=== PATIENT | male | born 1965 | race Caucasian/White ===

== ENCOUNTER 2020-08-07 14:48 | Emergency (ER) | payer OTHER, SELFPAY ==
--- NOTE | ~2020-08-07 | XR_ITS ---
EXAMINATION: XR HAND, LEFT CLINICAL INFORMATION: Hand versus log splitter COMPARISON: None TECHNIQUE: PA, lateral, and oblique views of the left hand. FINDINGS: There is disruption of soft tissues of the distal fourth digit. There is a oblique comminuted fracture through the middle phalanx. There is ventral displacement of the distal fracture fragment seen on the lateral radiograph. No other fractures are seen. Mild degenerative changes present at the visualized DIP joints as well as the metacarpal phalangeal joint of the thumb. XR/XR hand LT min 3V IMPRESSION: Comminuted acute oblique fracture through middle phalanx fourth digit. No other fractures seen. Chronic degenerative changes DIP joints
[2020-08-07 14:53] VITALS: BP 177/116; PULSE 97; RESP 18; TEMP 36.6; O2SAT 97; BMI 28.5
--- NOTE | 2020-08-07 16:28 | ED_ITS ---
HPI - Extremity Problem General Chief complaint: Extremity Injury, Upper Stated complaint: HAND LACERATION Time Seen by Provider: 08/07/20 15:19 Source: patient Mode of arrival: ambulatory Limitations: no limitations History of Present Illness HPI Narrative: Patient is a 55-year-old male with no significant past medical history who presents to the ED after cutting his left 4th and 5th digit with a log splitter. Can bend fingers, bleeding. NO other complains, denies pain. Related Data Previous Rx's Medication Instructions Recorded doxycycline hyclate 100 mg tablet 100 mg PO BID #14 tab 04/26/20 amoxicillin-pot clavulanate 1 tab PO Q12H 10 Days #20 tab 08/07/20 [Augmentin] Allergies Allergy/AdvReac Type Severity Reaction Status Date / Time dog hair Allergy Unknown cant breath Uncoded 05/03/18 00:00 Review of Systems Review of Systems: Yes all other systems are reviewed and are negative [facility] Social History Social History Advance Directives: No Advance Directives Information Provided: No Physical Exam Vital Signs: Vital Signs: Last Vital Signs Temp 97.8 F 08/07/20 14:53 Pulse 97 08/07/20 14:53 Resp 18 08/07/20 14:53 BP 177/116 H 08/07/20 14:53 Pulse Ox 97 08/07/20 14:53 Body Mass Index 28.5 Const: General: cooperative, healthy appearing, comfortable and no acute distress Nutritional Appearance: average body habitus Orientation/consciousness: patient oriented x3 Eyes: General: appearance normal, both eyes and all related structures Resp: Effort & Inspection: normal respiratory effort and able to speak in com plete sentences Skin: Other: Left 4th digit, almost circumferential laceration, no bone exposure, NVI along both sides of the finger and at the finger tip, actively bleeding. Full range of motion. Left 5th digit, laceration through the fingernail Neuro: General: patient oriented x3 Course Course Course Narrative: 55-year-old male with no significant past medical history with laceration to 4th and 5th digit left hand. X-rays taken, consult with Ortho, tomorrow advised clean, then suture & volar splint, she will see pt on Sunday Reevaluation(s) Reevaluation #1: Eat searches apply to left 4th digit, 2 sutures apply to finger tip of left 5th digit, 1st dose of antibiotic given in the ED. Patient states his last tetanus was approximately 6 months ago.. Left 4th digit still bleeding a trickle, I used epinephrine and a pressure dressing. preparatory technician instructed to recheck in 10 minutes and as long as bleeding has stopped, apply a volar splint, candy and he is taking over the patient, she will need to look at the splint prior to discharge to ensure NVI and proper application. Procedures Laceration Laceration 1: Site: hand (4th digit) Side (If applicable): left Size (cm): 8.0 Description: irregular Depth: simple, single layer Local Anesthetic: lidocaine 2% Amount of anesthesia used (mL): 3 Pre-repair: wound explored, irrigated extensively and extensive debridement Skin layer closed with: nylon Size (cm): 4-0 Number of sutures: 8 Technique: simple, interrupted Laceration 2: Site: hand (5th digit) Side (If applicable): left Size (cm): 1.5 Description: linear Depth: simple, single layer Local Anesthetic: lidocaine 2% Amount of anesthesia used (mL): 3 Pre-repair: wound explored, irrigated extensively and extensive debridement Skin layer closed with: vicryl Size (cm): 4-0 Number of sutures: 2 Technique: simple, interrupted Orthopedic Splinting/Casting Injury #1: Side: left Upper Extremity Injury Location: hand Upper Extremity Immobilizer: volar splint Additional Comments: Applied by tech, patient NVI, checked by me. Discharge Plan Discharge Clinical Impression: Fracture of middle phalanx of finger of left hand, Laceration Patient Disposition: Home, Self-Care Instructions: Finger Fracture (ED), Splint Care (ED) Additional Instructions: You may take Tylenol or Motrin for pain control. Please be sure to follow up with Ninoska Leigh at Orthopedics on Sunday. Prescriptions: New amoxicillin-pot clavulanate [Augmentin] 875-125 mg tablet 1 tab PO Q12H 10 Days Qty: 20 RF: 0 No Action doxycycline hyclate 100 mg tablet 100 mg PO BID Qty: 14 RF: 0 Referrals: InstrLauren streeter MD [Physician] - 2 days (follow up with Ninoska Leigh on Sunday08/09/20 for comminuted acute oblique fracture through the middle phalanx 4th digit left hand)
[2020-08-07] MEDS: Lidocaine HCl 2 % MPF 5 ML VIAL SUBCUT (16:42)
[2020-08-07] MEDS: Amoxicillin/Potassium Clav 875 MG TABLET PO (16:42)
--- NOTE | 2020-08-07 18:30 | ED_ITS ---
HPI - Extremity Problem General Chief complaint: Extremity Injury, Upper Stated complaint: HAND LACERATION Time Seen by Provider: 08/07/20 15:19 Source: patient Mode of arrival: ambulatory Limitations: no limitations Related Data Previous Rx's Medication Instructions Recorded doxycycline hyclate 100 mg tablet 100 mg PO BID #14 tab 04/26/20 amoxicillin-pot clavulanate 1 tab PO Q12H 10 Days #20 tab 08/07/20 [Augmentin] oxycodone 5 mg PO Q4H PRN #14 tab 08/07/20 Allergies Allergy/AdvReac Type Severity Reaction Status Date / Time dog hair Allergy Unknown cant breath Uncoded 05/03/18 00:[facility] Social History Social History Advance Directives: No Advance Directives Information Provided: No Physical Exam Vital Signs: Vital Signs: Last Vital Signs Temp 97.8 F 08/07/20 14:53 Pulse 97 08/07/20 14:53 Resp 18 08/07/20 14:53 BP 177/116 H 08/07/20 14:53 Pulse Ox 97 08/07/20 14:53 Body Mass Index 28.5 Course Course Course Narrative: Sign-out from Tamanna Nassar p.a.-C please refer to her note for full H&P and laceration repairs., she does report injecting 0.3 mL of 1mg/ml of epi into the lateral aspect of the 4th finger. Dressing was removed, patient does have brisk capillary refill to the tip of the finger down to the PIP joint with some blanching to the dorsal aspect from PIP to MCP joint. Has brisk capillary refill to the entire finger ventrally. Dr Martinez in to assess, vascular checks every 15 minutes. Capillary refill was checked more often than every 15 minutes by multiple people, RN, technicians, , and this CAP BLOCKER. At 9:00 p.m., plan to place volar splint with fingers visible to check capillary refill. 9:30 p.m. patient was placed in a volar splint approximately 9:00 p.m.. Patient does have brisk and equal capillary refill to all digits. Patient will follow- up with hand surgeon. Will prescribe oxycodone 5 mg 1 tablet every 4 hours as needed for pain management. Patient does understand that if he loses capillary refill that he must present to emergency department immediately. Both and patient demonstrated ability to be a measure capillary refill. Patient verbalized understanding of and agrees plan of care discharge home. Discharge Plan Discharge Clinical Impression: Fracture of middle phalanx of finger of left hand, Laceration Patient Disposition: Home, Self-Care Instructions: Finger Fracture (ED), Splint Care (ED) Additional Instructions: You were evaluated for lacerations sustained from a log splitter. You do have significant injuries, and Comminuted acute oblique fracture through middle phalanx fourth digit. Please take prescription antibiotics. I prescribed oxycodone, take this medication every 4 hours as needed for pain management. This medication is a narcotic and has high risk for addiction and abuse. Not drive or operate machinery while taking this medication. Monitor for capillary refill as often as possible. If you notice that there was a delay in capillary refill you must present to an emergency department immediately. Follow-up with hand surgeon. I referred you to Irasema Blevins MD. Thank you for choosing this emergency department for evaluation. Please follow-up with primary care physician as needed. Return to the emergency department for any new, concerning, or worsening symptoms. Prescriptions: New amoxicillin-pot clavulanate [Augmentin] 875-125 mg tablet 1 tab PO Q12H 10 Days Qty: 20 RF: 0 oxycodone 5 mg tablet 5 mg PO Q4H PRN (Reason: pain) Qty: 14 RF: 0 No Action doxycycline hyclate 100 mg tablet 100 mg PO BID Qty: 14 RF: 0 Referrals: Lauren Domingo MD [Physician] - 2 days (follow up with Ninoska Tuttle on Sunday08/09/20 for comminuted acute oblique fracture through the middle phalanx 4th digit left hand) Irasema Blevins MD [Physician] - 2 days (Fourth digit laceration with comminuted fracture, log splitter versus finger injury.)
[2020-08-07] MEDS: ceFAZolin Sodium/Dextrose,Iso 2 GM/50 ML PIGGYBACK IV (19:53)
--- NOTE | 2020-08-07 21:52 | PC.NURSE ---
1900 RN RECEIVED PT @ CHANGE OF SHIFT W/ INSTRUCTIONS TO WATCH PT WOUND SITE D/T PREVIOUS MED ADMISSION WHEN WOUND WAS BEING CLOSED. THROUGHOUT MY CARE & INTERACTION W/ PT HE HAD VERY MINIMAL COMPLAINTS,STATING SOME PAIN TO THE FINGER BUT NOTHING ABNORMAL TO HIM, PT HAD CAPILLARY REFILL TO THE EFFECTED FINGER W/O DELAY. UPON DISCHARGE PT WAS SPOKEN TO AT LENGTH RE: WHEN TO RETURN FOR MEDICAL TX. PT TOLD TO CHECK CAPILLARY REFILL, R/T ED FOR INCREASED PAIN, NUMBNESS, INABILITY TO MOVE THE FINGER. PTS WAS AT THE STRETCHER SIDE DURING THIS CONVERSATION. PT STATED UNDERSTANDING
== END 2020-08-07 22:39 | disposition home or self-care (01) ==
PROVIDERS: Emergency Provider Internal Medicine; PCP Internal Medicine
DX: S62.625B Displaced fracture of middle phalanx of left ring finger, initial encounter for open fracture (principal); S61.217A Laceration without foreign body of left little finger without damage to nail, initial encounter; W27.0XXA Contact with workbench tool, initial encounter; Y93.89 Activity, other specified; Y92.017 Garden or yard in single-family (private) house as the place of occurrence of the external cause; Y99.9 Unspecified external cause status
CPT/HCPCS: 12004; 12042; 29125; 73130; 96365; 96372; 99283; 99284; J0690

== ENCOUNTER → 2020-08-09 08:59 | Outpatient (BNVA) | payer OTHER, SELFPAY | PROVIDERS: PCP Internal Medicine; Visit Provider Physician Assistant ==

== ENCOUNTER 2020-08-10 08:08 | Day surgery (SDC) | payer OTHER, SELFPAY ==
--- NOTE | 2020-08-09 11:53 | HO.ANESPROP2 ---
Documented by User: Maureen Arriaza 08/09/20 11:55 HPI - Anesthesia Eval Consult details Narrative: 55yo M for Left I&D of ring and small finger, Left, s ring finger Finger Fx ORIF,repair of extensor tendon,repair of small finger nail bed PMFSH Active Problems Active Problems: All Active Problems (Updated 08/09/20 @ 10:36 by Ninoska Fuentes PA-C) Fracture of phalanx of ring finger (Acute) Laceration of finger of left hand without foreign body with damage to nail (Acute) Laceration of ring finger without damage to nail (Acute) Skin infection (Acute) Past Medical History Medical History Asthma Prediabetes Surgical History Surgical History Hx of colonoscopy Hx of knee surgery Social History Social History Smoking Status: Never smoker Use of substances other than those prescribed or required for medical reasons: No Are you DNR?: No Advance Directives: Yes Advance Directives Information Provided: Yes Advance Directives on File: No Advance Directives Date on File: 08/10/20 Current occupational status: employed Current occupation: [employer] - right handed Meds Allergies Allergy/AdvReac Type Severity Reaction Status Date / Time dog hair Allergy Unknown cant breath Uncoded 08/10/20 08:31 Exam Exam Date and Time: August 09, 2020 1153 Assessment and Plan Assessment Anesthesia Assessment: Chart Reviewed Documented by User: Liberty Wiseman 08/10/20 10:23 PMFSH Past Medical History Medical History Asthma Prediabetes Surgical History Surgical History Hx of colonoscopy Hx of knee surgery Social History Social History (Reviewed 08/10/20 @ 10:22 by Liberty Robles Smoking Status: Never smoker Use of substances other than those prescribed or required for medical reasons: No Are you DNR?: No Advance Directives: Yes Advance Directives Information Provided: Yes Advance Directives on File: No Advance Directives Date on File: 08/10/20 Current occupational status: employed Current occupation: [employer] - right handed Meds Allergies Allergy/AdvReac Type Severity Reaction Status Date / Time dog hair Allergy Unknown cant breath Uncoded 08/10/20 08:31 Exam Airway Mallampati Class: II TM Dist: >3cm Neck ROM: Full Assessment and Plan Assessment Anesthesia Assessment: Anesthesia Plan Discussed and Chart Reviewed Final Anesthetic Review NPO: Yes ASA Class: II Final Preanesthetic Review: No Changes in Pt Med Stat, Meds/Allgs Chart Reviewed, Consent Obtained/Reviewed and Anes Risks/Benef Reviewed Patient Risk: Low Procedure Risk: Low Assessment/Block/Sedation in SS: Assess/Block/Sedation-SS Anesthetic Plan Anesthetic Plan: GA Disposition: Standard PACU
--- NOTE | ~2020-08-10 | FL_ITS ---
EXAMINATION: XR FLUOROSCOPY WITH IMAGES CLINICAL INFORMATION: Left ring finger ORIF COMPARISON: 08/07/2020 TECHNIQUE: Fluoroscopy performed by Dr. Irasema Blevins. Fluoroscopy time: 142.5% seconds DAP: 43651.3 uGycm2 Images: 3 FINDINGS: Imaging shows placement of 3 K wires for comminuted intra-articular fracture involving the base of the left 4th middle phalanx. FL/FL guidance in OR IMPRESSION: Or internal fixation left 4th finger middle phalanx fracture.
[2020-08-10 08:31] VITALS: BP 148/98; PULSE 65; RESP 16; TEMP 36.6; O2SAT 97; BMI 28.5
[2020-08-10] MEDS: Lactated Ringers 1,000 ML 100 ML IVCONT (08:47)
--- NOTE | 2020-08-10 09:06 | MHC.SHP ---
Pre-Procedural Eval Section B Chief Complaint: fx of left ring finger Allergies: Allergies Allergy/AdvReac Type Severity Reaction Status Date / Time dog hair Allergy Unknown cant breath Uncoded 08/10/20 08:31 Plan I have reviewed the history and physical and performed a pertinent physical examination on my patient. No changes have occurred unless specified.
--- NOTE | 2020-08-10 09:07 | P.OP_ITS ---
Operative Note Operative Note Date of Service: 08/10/20 Narrative: Operative Note Narrative: Preop diagnosis: 1. Left ring finger open middle phalanx fracture 2. Left ring finger extensor tendon laceration 3. Left small finger nail bed injury Postop diagnosis: Same Procedure: 1. Left ring finger open middle phalanx fracture I&D 2. Left ring finger middle phalanx fracture open reduction internal fixation 3. Left ring finger repair of extensor tendon 4. Left small finger nail bed repair 5. Ulnar nerve block Surgeon: Irasema Blevins MD Anesthesia: General Findings: Near amputation of the left ring finger at the middle phalanx with an open fracture of the middle phalanx, and laceration of the extensor tendon. Nail bed injury to the distal aspect of the left small finger nail bed all wounds appear to be clean Implants: 0.045 K-wires times 3 Tourniquet time: None EBL: Minimal Specimen: None Drains: None Complications: None Disposition: Brought to the recovery room in stable condition Plan: Continue oral antibiotics until finished. Follow-up in 10-14 days for a wound check, postop radiographs and for placement in a short-arm finger spica cast or splint Anticipate suture removal in about 3 weeks Anticipate K-wire removal in 4 weeks based on interval bony healing Educate the patient that full fracture healing anticipated in approximately 8-12 weeks. Indications: The patient is 55 years old with a wood splitting injury to his left ring and small fingers resulting in an open fracture of the left ring finger middle phalanx at the left small finger distal phalanx . The risks and benefits of operative treatment, including but not limited to risk of damage to blood vessels, nerves, tendons, infection, recurrence, delayed or nonunion of fracture, persistent pain or numbness, incomplete resolution of preoperative symptoms, or need for further surgery were discussed with the patient and they wished to proceed with surgery. Procedure: Once consent was obtained patient was brought back to the operating suite and placed in the operating table in a supine position. . Perioperative antibiotics and general anesthesia was administered by the anesthesia team. A tourniquet was applied to the proximal aspect of the left upper extremity and the limb was prepped and draped in a standard surgical fashion. The limb was elevated and exsanguinated with an Esmarch bandage the tourniquet inflated to 250 mm of mercury for a total tourniquet time of 82 minutes. The sutures were removed from the patient's left ring finger revealing a near amputation of the finger at the middle phalanx. The wound was opened and an I&D was performed. I used a curette on the ends of the bone to remove soft tissue and debris from the fracture site. Overall the wounds were clean. The extensor tendons were identified on the dorsal aspect of the middle phalanx. The FluoroScan was used during the case to assist with our fracture reduction and placement of all implants. At this point I performed an open reduction of the middle phalanx fracture. I passed a 0.045 K-wire retrograde through the tip of the ring finger and advanced it across the D IP joint and down the shaft of the middle phalanx to the fracture site. The FluoroScan was used to assure that I had a satisfactory reduction and the K-wire was advanced across the fracture site to the base of the middle phalanx. I then passed a 0.045 K-wire obliquely from the distal radial aspect of the middle phalanx retrograde across the oblique fracture of the middle phalanx to the base of the middle phalanx. Third 0.045 K-wire was similarly advanced from the radial cortex parallel to the previous K-wire, across the fracture site and to the base of the middle phalanx. The Fracture alignment was assessed for both angular and rotational malalignment. Once satisfied with our fracture reduction and implant placement, the K-wires were bent and cut short and pin caps applied. Final fluoroscopic images were then obtained. I then reapproximated the extensor tendon edges with some 4-0 Vicryl suture material. I then use some 4-0 nylon suture to reapproximate the skin edges over the dorsal and ulnar aspect of the middle phalanx. Attention was then turned to the left small finger. The nail plate was cut and was removed from the underlying nail bed using a [place] elevator. This then revealed the nail bed injury. This wound was also copiously irrigated with normal saline. I then repaired the nail bed with some 6 0 got suture, and repaired the distal skin laceration using some 5 0 nylon suture. The wounds were copiously irrigated with normal saline. [An ulnar nerve block was then performed by infiltrating about the ulnar nerve at the wrist with some 1% lidocaine with epinephrine for postop pain control.] A Sterile dressing and short volar splint extending to the forearm was applied. The patient appears to have tolerated the procedure well and with no complications. All digits were well vascularized at the conclusion of the case.
[2020-08-10 12:37] VITALS: BP 138/94; PULSE 78; RESP 20; TEMP 36.6; O2SAT 99
[2020-08-10 12:42] VITALS: BP 129/92; PULSE 75; RESP 16; O2SAT 99
[2020-08-10 12:47] VITALS: BP 120/93; PULSE 74; RESP 18; O2SAT 98
[2020-08-10 12:52] VITALS: BP 134/98; PULSE 80; RESP 16; O2SAT 99
[2020-08-10 13:07] VITALS: BP 146/98; PULSE 73; RESP 16; O2SAT 97
== END 2020-08-10 13:36 | disposition home or self-care (01) ==
PROVIDERS: PCP Internal Medicine; Visit Provider Orthopaedic Surgery
PROC: (CPT 26735; principal; 2020-08-10 09:40)
PROC: (CPT 26735; 2020-08-10 09:40)
DX: S62.655A Nondisplaced fracture of middle phalanx of left ring finger, initial encounter for closed fracture (principal); S66.325A Laceration of extensor muscle, fascia and tendon of left ring finger at wrist and hand level, initial encounter; S61.307A Unspecified open wound of left little finger with damage to nail, initial encounter; J45.909 Unspecified asthma, uncomplicated; R73.03 Prediabetes; W26.8XXA Contact with other sharp object(s), not elsewhere classified, initial encounter; Y93.89 Activity, other specified; Y92.9 Unspecified place or not applicable; Y99.8 Other external cause status
CPT/HCPCS: 26735; 11012; 26418; 11760; J0690; J1100; J2250; J2405; J3010

== ENCOUNTER → 2020-08-11 13:43 | Outpatient (BNVA) | payer OTHER, SELFPAY | PROVIDERS: PCP Internal Medicine; Visit Provider Orthopaedic Surgery ==

== ENCOUNTER 2020-08-17 08:44 | Outpatient (REF) | payer OTHER, SELFPAY ==
--- NOTE | ~2020-08-17 | XR_ITS ---
EXAMINATION: XR HAND, LEFT CLINICAL INFORMATION: Fracture. Pain. COMPARISON: Left hand radiographs dated 06/07/2020. TECHNIQUE: PA, lateral, and oblique views of the left hand. FINDINGS: Orthopedic pins across the previously seen 4th middle phalangeal fracture which now appears in near anatomic alignment. No significant new bone/callus formation. No hardware fracture or perihardware lucency. No osseous erosion. XR/XR hand LT min 3V IMPRESSION: Orthopedic pins across the 4th middle phalangeal fracture with improved anatomic alignment. No evidence of hardware complication.
== END 2020-08-17 08:45 | disposition home or self-care (01) ==
LOC: HO.HOSX 08:44
PROVIDERS: PCP Internal Medicine; Visit Provider Orthopaedic Surgery
DX: M79.642 Pain in left hand (principal); R21 Rash and other nonspecific skin eruption; S62.625B Displaced fracture of middle phalanx of left ring finger, initial encounter for open fracture; S69.92XA Unspecified injury of left wrist, hand and finger(s), initial encounter; S56.422A Laceration of extensor muscle, fascia and tendon of left index finger at forearm level, initial encounter
CPT/HCPCS: 73130

== ENCOUNTER 2020-08-24 16:21 | Outpatient (REF) | payer OTHER, SELFPAY | END 2020-08-24 16:22 | disposition home or self-care (01) | LOC: HO.HOSX 16:21 | PROVIDERS: Visit Provider Orthopaedic Surgery | DX: Z13.89 Encounter for screening for other disorder (principal) ==

== ENCOUNTER 2020-08-25 07:53 | Outpatient (REF) | payer OTHER, SELFPAY ==
--- NOTE | ~2020-08-25 | XR_ITS ---
EXAMINATION: XR HAND, LEFT CLINICAL INFORMATION: Follow-up fracture COMPARISON: Left hand 08/17/2020 TECHNIQUE: PA, lateral, and oblique views of the left hand. FINDINGS: There are 3 pins traversing the comminuted proximal and mid phalanx fourth digit in alignment. No callus formation is seen. There is persistent soft tissue swelling. Mild degenerative arthritic changes as seen in the PIP and DIP joints of second through fifth digits. XR/XR hand LT min 3V IMPRESSION: 3 pins stabilizing mid phalangeal comminuted fracture fourth digit. There is no callus formation seen yet with mild soft tissue swelling. No major change from 08/17/2020.
== END 2020-08-25 07:54 | disposition home or self-care (01) ==
LOC: HO.HOSX 07:53
PROVIDERS: Visit Provider Orthopaedic Surgery
DX: S56.42 Laceration of extensor muscle, fascia and tendon of other and unspecified finger at forearm level (principal); S69.92XD Unspecified injury of left wrist, hand and finger(s), subsequent encounter; S62.625D Displaced fracture of middle phalanx of left ring finger, subsequent encounter for fracture with routine healing
CPT/HCPCS: 73130

== ENCOUNTER 2020-09-01 09:34 | Outpatient (REF) | payer OTHER, SELFPAY ==
--- NOTE | ~2020-09-01 | XR_ITS ---
EXAMINATION: XR HAND, LEFT CLINICAL INFORMATION: Pain in left hand. COMPARISON: 08/25/2020 TECHNIQUE: PA, lateral, and oblique views of the left hand. FINDINGS: Again seen are pins 4th digit with 1 pin extending through the distal phalanx and middle phalanx and 2 pins extending obliquely through the middle phalanx. Comminuted fracture is still seen. There is some evidence of some interval healing, however. Degenerative changes are again seen at the DIP joints along with the metacarpal phalangeal joints of the 1st and 2nd digits. Milder changes are present at the PIP joints. No new fractures seen. XR/XR hand LT min 3V IMPRESSION: Stable appearance of pins in the 4th digit with some evidence of fracture healing. Degenerative changes as described above.
== END 2020-09-01 09:35 | disposition home or self-care (01) ==
LOC: HO.HOSX 09:34
PROVIDERS: Visit Provider Orthopaedic Surgery
DX: M79.642 Pain in left hand (principal)
CPT/HCPCS: 73130

== ENCOUNTER 2020-09-17 08:12 | Outpatient (REF) | payer OTHER, SELFPAY ==
--- NOTE | ~2020-09-17 | XR_ITS ---
EXAMINATION: XR HAND, LEFT CLINICAL INFORMATION: Pain in left hand. COMPARISON: Prior left hand radiographs from through 09/01/2020. TECHNIQUE: PA, lateral, and oblique views of the left hand. FINDINGS: Again seen are fixation pins spanning the mid and distal phalanx of the 4th digit of the left hand. The pins traverse a comminuted fracture of the middle phalanx. In comparison to 09/01/2020, there appears to be evidence of some bony remodeling and interval healing. Degenerative changes involving the PIP and DIP joints are unchanged. XR/XR hand LT min 3V IMPRESSION: Overall stable appearance of pins spanning the middle and distal phalanx of the 4th digit with evidence of ongoing fracture healing.
== END 2020-09-17 08:13 | disposition home or self-care (01) ==
LOC: HO.XRAY 08:12
PROVIDERS: PCP Internal Medicine; Visit Provider Orthopaedic Surgery
DX: S62.625D Displaced fracture of middle phalanx of left ring finger, subsequent encounter for fracture with routine healing (principal); S69.92XD Unspecified injury of left wrist, hand and finger(s), subsequent encounter; X58.XXXD Exposure to other specified factors, subsequent encounter
CPT/HCPCS: 73130

== ENCOUNTER 2020-11-03 08:25 | Outpatient (REF) | payer OTHER, SELFPAY ==
--- NOTE | ~2020-11-03 | XR_ITS ---
EXAMINATION: XR HAND, LEFT CLINICAL INFORMATION: Left hand pain COMPARISON: 09/17/2020 TECHNIQUE: PA, lateral, and oblique views of the left hand. FINDINGS: The wires have been removed from the 4th finger with continued healing and osseous bridging of the 4th middle phalanx fracture. The displaced volar fragment appears to be partially incorporated into the base of the middle phalanx. No acute abnormality. XR/XR hand LT min 3V IMPRESSION: Continued healing of the 4th middle phalanx fracture following hardware removal. Radiographically, the fracture appears completely healed with a partially incorporated volar fragment.
== END 2020-11-03 08:26 | disposition home or self-care (01) ==
LOC: HO.HOSX 08:25
PROVIDERS: Visit Provider Orthopaedic Surgery
DX: S62.625D Displaced fracture of middle phalanx of left ring finger, subsequent encounter for fracture with routine healing (principal); S66.325D Laceration of extensor muscle, fascia and tendon of left ring finger at wrist and hand level, subsequent encounter; M25.642 Stiffness of left hand, not elsewhere classified
CPT/HCPCS: 73130

== ENCOUNTER 2022-10-17 13:23 | Outpatient (AMB) | payer OTHER, SELFPAY ==
--- NOTE | 2022-10-17 13:25 | MHC.OFFWIV ---
Intake Vital Signs 10/17/22 13:28 BP 120/78 Blood Pressure Location Lt brachial Position Sitting Pulse 104 H Pulse Source Pulse Oximeter Pulse Oximetry (%) 98 Oxygen Delivery Method Room Air Intake Visit Reasons: EP RT knee pain (lobby) Intake Note: Patient here for right knee pain, states its been present for at least 6 months, lately it has been very bothersome. Patient Tobacco Use Status: Never used Tobacco Allergies dog hair Allergy (Unknown, Uncoded 10/18/22 06:08) cant breath Medication List - Last Reconciled 10/18/22 by Hood Haque MD meloxicam 15 mg PO DAILY Do you need a note to return to daycare/school/sports/work: No HPI EP RT knee pain (lobby) HPI Details 57-year-old male presents to the office for a sick visit. Patient works on his knees, he puts floors down, tiles for a living. Patient is having persistent pain in the right knee for the past 6 months. Symptoms are worse when he kneels down. He has tried [id number] anti-inflammatories with minimal relief. Able to walk and climb stairs with minimal discomfort. PFSH Medical History Asthma Prediabetes Surgical History Hx of colonoscopy Hx of knee surgery Social History Patient Tobacco Use Status: Never used Tobacco Advance Directives Date on File: 08/10/20 Current occupational status: employed Current occupation: [employer] - right handed Physical Exam Vital Signs: Last Vital Signs Pulse 104 H 10/17/22 13:28 BP 120/78 10/17/22 13:28 Pulse Ox 98 10/17/22 13:28 Oxygen Delivery Method Room Air 10/17/22 13:28 Extrem Other: Right knee: Swollen infrapatellar bursa, tender to touch. Full range of motion at the knee. No joint line tenderness. Assessment & Plan Assessment & Plan (1) Patellar bursitis of right knee: Code(s): M70.51 - Other bursitis of knee, right knee Plan: Anti-inflammatories called in. Patient would need an orthopedic appointment for possible steroid injection. Advised to use splint. Orders: Referrals Orthopedics Referral M70.51 - Other bursitis of knee, right knee Medications: New meloxicam 15 mg PO DAILY 14 tabs 0RF Coding Level of Care Code Est Pt Level 3 (74651) Diagnoses Patellar bursitis of right knee M70.51
[2022-10-17 13:28] VITALS: BP 120/78; PULSE 104; O2SAT 98
== END 2022-10-17 14:21 | disposition home or self-care (01) ==
PROVIDERS: PCP Internal Medicine; Visit Provider Internal Medicine
DX: M70.51 Other bursitis of knee, right knee (principal)
CPT/HCPCS: 99213

== ENCOUNTER 2022-11-24 10:19 | Outpatient (AMB) | payer OTHER, SELFPAY ==
--- NOTE | 2022-11-24 10:27 | MHC.OFFVIS ---
Intake Vital Signs 11/24/22 10:31 Height 5 ft 10.5 in Weight 195 lb BMI 27.6 Intake Visit Reasons: Newprob-bursitis of knee, right knee Intake Note: Isaac a 57 year old male who presents today as a new patient for an evaluation of right knee pain. Patient reports pain has been present for about a year, denies injury. He states he does cynthia that requires him to be on his knees. He denies knee giving out but feels like his knee will. His pain is intermittent and located at the anterior aspect of knee. Denies numbness or tingling. No previous tx. Allergies dog hair Allergy (Unknown, Uncoded 11/24/22 10:36) cant breath HPI Newprob-bursitis of knee, right knee HPI Details 57-year-old male who presents to the office today for evaluation of right knee pain for about an year. He states he has intermittent pain in the anterior aspect of his knee. He also c/o experiencing like his knee will give out while standing. He denies any numbness, tingling or injury and has not had any treatment in the past. 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 [facility] Medical History Asthma Prediabetes Surgical History Hx of colonoscopy Hx of knee surgery Social History Patient Tobacco Use Status: Never used Tobacco Advance Directives Date on File: 08/10/20 Current occupational status: employed Current occupation: [employer] - right handed Review of Systems Const All systems reviewed & are unremarkable except as noted in HPI and below Physical Exam Vital Signs: BMI result Body Mass Index 27.6 Extrem Other: Right knee: Normal to inspection. He does have a trace infra-patellar bursitis. No redness, warmth or tenderness to palpation. He has full ROM without pain. NVI. Assessment & Plan Assessment & Plan (1) Bursitis of right knee: Code(s): M70.51 - Other bursitis of knee, right knee Plan We discussed conservative management, which includes compression, NSAIDs and activity modifications. If symptoms worsen, the area becomes red, hot and painful, they should return to see me. Otherwise, PRN. Orders: Orders XR knee RT 2V Today M25.569 - Pain in unspecified knee XR knee standing BI Today M25.561 - Pain in right knee, M25.562 - Pain in left knee Patient Instructions: Scribed for Ninoska Funetes PA-C, by Isac Cyr medical insurance verifier, on 11/24/2022 at 10:30 AM [facility]. Ninoska Quispe PA-C, have personally reviewed and agree with the information entered by the scribe. Coding Level of Care Code Est Pt Level 3 (40549) Diagnoses Bursitis of right knee M70.51
[2022-11-24 10:31] VITALS: BMI 27.6
== END 2022-11-24 10:59 | disposition home or self-care (01) ==
PROVIDERS: PCP Internal Medicine; Visit Provider Physician Assistant
DX: M70.51 Other bursitis of knee, right knee (principal)
CPT/HCPCS: 99213

== ENCOUNTER 2022-11-24 13:40 | Outpatient (REF) | payer OTHER, SELFPAY ==
--- NOTE | ~2022-11-24 | XR_ITS ---
EXAMINATION: XR KNEE, RIGHT CLINICAL INFORMATION: Pain. TECHNIQUE: AP bilateral knee standing 1 view. Right knee 2 views. COMPARISON: None available. FINDINGS: AP BILATERAL KNEE STANDING: There is mild reduction in the medial compartment joint spaces of both knees. The lateral compartment joint space is somewhat maintained. No bony erosive changes or soft tissue swelling seen. No loose bodies noted. RIGHT KNEE: The patellofemoral compartments soft tissues are normal. There is a small subchondral defect along medial femoral condyle on sunrise view. There is a small loose body or bone fragment seen posterior to the fibula. There is mild suprapatellar joint effusion suspected. XR/XR knee RT 2V IMPRESSION: 1. Mild degenerative changes medial compartment, both knees. 2. Mild right knee suprapatellar joint effusion with a small subchondral defect along the medial femoral condyle. There is a small loose body or bone fragment posterior to the fibula. 3. Recommend MRI right knee. 4. Mild suprapatellar joint effusion.
--- NOTE | ~2022-11-24 | XR_ITS ---
EXAMINATION: XR KNEE, RIGHT CLINICAL INFORMATION: Pain. TECHNIQUE: AP bilateral knee standing 1 view. Right knee 2 views. COMPARISON: None available. FINDINGS: AP BILATERAL KNEE STANDING: There is mild reduction in the medial compartment joint spaces of both knees. The lateral compartment joint space is somewhat maintained. No bony erosive changes or soft tissue swelling seen. No loose bodies noted. RIGHT KNEE: The patellofemoral compartments soft tissues are normal. There is a small subchondral defect along medial femoral condyle on sunrise view. There is a small loose body or bone fragment seen posterior to the fibula. There is mild suprapatellar joint effusion suspected. XR/XR knee standing BI IMPRESSION: 1. Mild degenerative changes medial compartment, both knees. 2. Mild right knee suprapatellar joint effusion with a small subchondral defect along the medial femoral condyle. There is a small loose body or bone fragment posterior to the fibula. 3. Recommend MRI right knee. 4. Mild suprapatellar joint effusion.
== END 2022-11-24 13:41 | disposition home or self-care (01) ==
LOC: HO.HOSX 13:40
PROVIDERS: Visit Provider Physician Assistant
DX: M70.51 Other bursitis of knee, right knee (principal); M25.562 Pain in left knee
CPT/HCPCS: 73560; 73565

== ENCOUNTER 2022-12-20 10:35 | Outpatient (AMB) | payer OTHER, SELFPAY ==
--- NOTE | 2022-12-20 11:00 | AM.OFFWIN_ITS ---
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 He states that a in the evening the exposure caught up with him and he had an episode where he could not breathe and it took about an hour or so to subside. He did not have any medications with him at that time. He reports that he is feeling well now and asymptomatic. [facility] Medical History Asthma Prediabetes Surgical History Hx of colonoscopy Hx of knee surgery Social History Patient Tobacco Use Status: Never used Tobacco Advance Directives Date on File: 08/10/20 Current occupational status: employed Current occupation: [employer] - right handed Physical Exam Vital Signs: Last Vital Signs Pulse 82 12/20/22 11:02 BP 130/80 12/20/22 11:02 Pulse Ox 98 12/20/22 11:02 Oxygen Delivery Method Room Air 12/20/22 11:02 Const General: healthy appearing and no acute distress Orientation/consciousness: patient oriented x3 Eyes Corneas: corneas normal Pupils: Equal, round and reactive pupils present Chest Chest palpation & inspection: no tenderness Resp Effort & Inspection: normal respiratory effort and able to speak in complete sentences Auscultation: clear to auscultation bilaterally GI Palpation (GI): nontender Neuro General: patient oriented x3 Cranial nerves: Yes Equal, round and reactive pupils present Psych Appearance: grossly normal Attitude: cooperative Assessment & Plan Assessment & Plan (1) Allergies: Code(s): T78.40XA - Allergy, unspecified, initial encounter Plan: The patient presents to urgent care for evaluation after allergic attack 2 days ago. His symptoms resolved slowly on their own but given his allergies and history of asthma precipitated by a contact with dog hair, I feel he would benefit from an albuterol inhaler to keep around at home or on the job site. Patient is agreeable to this plan. He does not need steroids he is asymptomatic at this time. We also discussed preventative measures such as wearing an N95 mask when contacting allergens Medications: New albuterol sulfate 90 mcg/actuation 2 inhalations inhalation QID PRN 6.7 grams 1RF shortness of breath or wheezing Coding Level of Care Code Est Pt Level 3 (99154) Diagnoses Allergies T78.40XA
[2022-12-20 11:02] VITALS: BP 130/80; PULSE 82; O2SAT 98
== END 2022-12-20 12:01 | disposition home or self-care (01) ==
PROVIDERS: PCP Internal Medicine; Visit Provider Emergency Medicine
DX: T78.40XA Allergy, unspecified, initial encounter (principal)
CPT/HCPCS: 99213

== ENCOUNTER → 2023-01-04 08:08 | Outpatient (AMB) | payer OTHER, SELFPAY ==
[2023-01-04 08:19] VITALS: BP 152/90; PULSE 87; TEMP 36.2; O2SAT 98; BMI 29.0
--- NOTE | 2023-01-04 08:19 | AM.OFFWIN_ITS ---
Intake Vital Signs 01/04/23 08:19 Height 5 ft 10.5 in Weight 205 lb BMI 29.0 BP 152/90 H Blood Pressure Location Lt brachial Position Sitting Pulse 87 Pulse Source Pulse Oximeter Temp 97.2 F Temp Source Temporal Artery Scan Pulse Oximetry (%) 98 Oxygen Delivery Method Room Air Intake Visit Reasons: EP Swollen scrotum/LT eye Intake Note: pt is here for c/o swollen scrotum per pt states double to size, and left eye redness and watery Patient Tobacco Use Status: Never used Tobacco Allergies Peanut Butter Allergy (Verified 01/04/23 09:54) Anaphylaxis dog hair Allergy (Unknown, Uncoded 01/04/23 08:20) cant breath Do you need a note to return to daycare/school/sports/work: Yes HPI HPI Comments History of Present Illness Details 57-year-old male that presents for testi cular swelling in left eye pain/irritation. Present for last 2-3 days. Dorsal is severe. This. Denies urinary symptoms fever discharge, rash, is monogamous with 1 partner. PFSH Medical History Prediabetes Asthma Surgical History Hx of knee surgery Hx of colonoscopy Social History Alcohol intake: current Alcohol type: beer Patient Tobacco Use Status: Never used Tobacco Smoked in Last 30 Days: No Use of substances other than those prescribed or required for medical reasons: No Advance Directives: Yes Advance Directives on File: Yes Advance Directives Date on File: 08/10/20 Current occupational status: employed Current occupation: [employer] - right handed Review of Systems Reports genital pain and Reports scrotal swelling Physical Exam Vital Signs: Last Vital Signs Temp 97.2 F 01/04/23 08:19 Pulse 87 01/04/23 08:19 BP 152/90 H 01/04/23 08:19 Pulse Ox 98 01/04/23 08:19 Oxygen Delivery Method Room Air 01/04/23 08:19 BMI result Body Mass Index 29.0 Const General: healthy appearing, comfortable, no acute distress and alert Orientation/consciousness: patient oriented x3 Limitations: no limitations HEENT Head: Yes normal to inspection Ears: hearing grossly normal bilaterally Resp Effort & Inspection: normal respiratory effort and able to speak in complete sentences Cardio Rate: regular rate Other: Severely edematous scrotum and penis. No rashes or lesion. Brawny appearance w/ sweating. Skin General skin exam: no rashes or lesions noted Neuro General: patient oriented x3 Extrem General: Yes normal to inspection Results AMB Urinalysis, Automated UA Leukoctes 0 Dot/uL Last Edit by Unruly Foley CMA on 01/04/23 09:04 UA Nitrite Negative Last Edit by Unruly Foley CMA on 01/04/23 09:04 UA Urobilinogen 0.2 mg/dL Last Edit by Unruly Foley CMA on 01/04/23 09 :04 UA Protein 0 mg/dL Last Edit by Unruly Foley CMA on 01/04/23 09:04 UA pH 6.0 Last Edit by Unruly Foley CMA on 01/04/23 09:04 UA Blood 0 Cale/uL Last Edit by Unruly Foley CMA on 01/04/23 09:04 UA Specific [place] 1.030 Last Edit by Unruly Foley CMA on 01/04/23 09:04 UA Ketone Positive Last Edit by Unruly Foley CMA on 01/04/23 09:04 UA Bilirubin 0 mg/dL Last Edit by Unruly Foley CMA on 01/04/23 09:04 UA Glucose 1000 mg/dL Last Edit by Unruly Foley CMA on 01/04/23 09:04 AMB Random Glucose (hemocue) AMB Random Glucose (hemocue) 271 mg/dL Last Edit by Unruly Foley CMA o n 01/04/23 09:06 Results Reviewed Results Reviewed: Laboratory Last Values Random Glu (Clinic) 271 mg/dL 01/04/23 09:04 Urine pH (Auto) 6.0 01/04/23 09:04 Specific [place] (Auto) 1.030 01/04/23 09:04 Urine Protein (Auto) 0 mg/dL 01/04/23 09:04 Glucose (UA)(Auto) 1000 mg/dL 01/04/23 09:04 Urine Ketones (Auto) Positive 01/04/23 09:04 Urine Blood (Auto) 0 Cale/uL 01/04/23 09:04 Urine Nitrite (Auto) Negative 01/04/23 09:04 Urine Bilirubin (Auto) 0 mg/dL 01/04/23 09:04 Urine Urobilinogen (Auto) 0.2 mg/dL 01/04/23 09:04 Leukocyte Esterase (Auto) 0 Dot/uL 01/04/23 09:04 Assessment & Plan Assessment & Plan (1) Scrotum swelling: Code(s): N50.89 - Other specified disorders of the male genital organs Plan VSS. On exam patient presents alert and oriented no acute distress. Exam was for Severely edematous scrotum and penis. No rashes or lesion. Brawny appearance w/ sweating. Urinalysis was performed showed elevated glucose bedside blood sugars 271 testing. Discussed signs of worsening concerning infection the patient recommend proceeding to the emergency department for further workup and evaluation. Discharge instructions, follow up and treatment are discussed with patient in my usual fashion. Alternatives in treatment are also discussed. The patient will return for worsening symptoms or as needed. Advised that any labs/imaging ordered will be followed up on and contact made if further treatment needed. Counseled that patient's condition may require further evaluation and/or treatment. Symptoms of concern for worsening disorder discussed in detail in my customary manner. Patient does verbalize understanding of the plan, there are no apparent barriers to communication. The patient is given the opportunity to ask questions and have them answered to his/her satisfaction Orders: Orders AMB Urinalysis Automated Today Z13.9 - Encounter for screening, unspecified AMB Random Glucose (hemocue) Today Z13.9 - Encounter for screening, unspecified Coding Level of Care Code Est Pt Level 3 (60397) Diagnoses Scrotum swelling N50.89
== END ==
PROVIDERS: PCP Internal Medicine; Visit Provider Physician Assistant
DX: N50.89 Other specified disorders of the male genital organs (principal)
CPT/HCPCS: 81003; 82948; 99213

== ENCOUNTER 2023-01-04 09:28 | Observation (INO) | payer OTHER, SELFPAY ==
--- NOTE | ~2023-01-04 | US_ITS ---
EXAMINATION: US SCROTUM CLINICAL INFORMATION: Swelling, erythema. COMPARISON: None available. TECHNIQUE: A sonogram of the scrotum was performed assessing pizano-scale appearance and color Doppler flow. Spectral Doppler analysis of the arterial and venous flow were performed in the testes bilaterally. FINDINGS: RIGHT: Right testicle measures 5.3 x 2.8 x 4.0 cm, volume 31.4 mL. No focal testicular parenchymal lesions are visualized. Spectral Doppler analysis of the arterial and venous flow is normal in the right testis. Right epididymal head is normal in size. No right hydrocele or varicocele is seen. Right epididymal Doppler flow is normal. LEFT: Left testicle measures 5.0 x 3.1 x 3.8 cm, volume 31 mL. No focal testicular parenchymal lesions are visualized. Spectral Doppler analysis of the arterial and venous flow is normal in the left testis. Left epididymal head is normal in size. No left hydrocele or varicocele is seen. Left epididymal Doppler flow is normal. Incidental finding of left epididymis appendix. There is bilateral scrotal wall thickening US/US scrotum IMPRESSION: 1. Bilateral scrotal wall thickening. 2. The testes and epididymis are unremarkable.
--- NOTE | ~2023-01-04 | US_ITS ---
EXAMINATION: US ABDOMEN COMPLETE CLINICAL INFORMATION: Elevated LFTs. COMPARISON: None available. TECHNIQUE: Real-time imaging of the abdominal viscera. FINDINGS: Very limited examination secondary to patient body habitus and shadowing from overlying bowel gas. PANCREAS: Not well seen. ABDOMINAL AORTA: Not well seen. INFERIOR VENA CAVA: Not well seen. LIVER: Enlarged with increased parenchymal echogenicity, sparing regions adjacent to the gallbladder fossa. No significant intrahepatic biliary ductal dilatation. No discrete focal mass, although evaluation is limited due to body habitus and shadowing from bowel gas. GALLBLADDER: Negative Allen's sign. No gallbladder wall thickening or pericholecystic free fluid. There is a 0.4 cm polyp versus adherent stone. COMMON BILE DUCT: Partially visualized measuring up to 0.5 cm in diameter. RIGHT KIDNEY: Limited evaluation. No hydronephrosis. No renal calculi or focal parenchymal lesions. The kidney measures 13.4 cm in maximum dimension. LEFT KIDNEY: Limited evaluation. No hydronephrosis. No renal calculi or focal parenchymal lesions. The kidney measures 11.5 cm in maximum dimension. SPLEEN: Splenomegaly measuring 13 cm. Indeterminate 0.8 x 0.8 x 0.7 cm hyperechoic splenic lesion. FREE FLUID: None. US/US abdomen complete IMPRESSION: Very limited examination secondary to patient body habitus and shadowing from overlying bowel gas. 1. Hepatomegaly with increased parenchymal echogenicity suggesting hepatic steatosis and/or hepatocellular disease. 2. Splenomegaly. 3. Indeterminate 0.8 cm hyperechoic splenic lesion; recommend short-term follow-up ultrasound or further characterization with outpatient MRI abdomen with and without IV contrast 4. A 0.4 cm gallbladder polyp versus adherent stone. If the patient has risk factors for gallbladder malignancy, a yearly follow-up ultrasound is recommended. If growth, surgical consult is recommended.
--- NOTE | ~2023-01-04 | CT_ITS ---
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 COMPARISON: None available. TECHNIQUE: Helical scanning was performed with submillimeter collimation through the pelvis with the use of oral contrast and during bolus intravenous injection of 85 mL of Omnipaque 350 intravenous contrast. Sagittal and coronal multiplanar 2-D reconstructions were obtained. This CT examination was performed using dose optimization techniques as appropriate, variously including the following: *Automated exposure control *Adjustment of mA and/or kV according to patient size (this includes techniques or standardized protocols for targeted exams where dose is matched to indication/reason for exam; i.e. extremities or head) *Use of iterative reconstruction technique DLP: 296 mGy-cm FINDINGS: PELVIS: Bilateral extensive scrotal wall edema and skin thickening. The testes are difficult to visualize/evaluate. Motion artifact technically degrades image quality. Small peritesticular fluid likely on a reactive basis. No gas within the soft tissues. Nonspecific subcentimeter mesenteric lymph nodes. Imaged loops of small and large bowel are not obstructed. No bulky pelvic lymphadenopathy. The prostate gland and seminal vesicles are within normal limits. The urinary bladder is unremarkable. No free fluid in the pelvis. OSSEOUS STRUCTURES: No destructive bone lesions. CT/CT pelvis w IV con IMPRESSION: Extensive scrotal wall edema and skin thickening. The testes are difficult to visualize/evaluate. Motion artifact technically degrades image quality. No gas within the soft tissues.
[2023-01-04 09:51] VITALS: BP 170/113; PULSE 77; RESP 18; TEMP 36.7; O2SAT 99; BMI 29.4
--- NOTE | 2023-01-04 09:56 | ED_ITS ---
HPI - General Adult General Chief complaint: General Medical Stated complaint: Swollen L eye, Swollen testicles Time Seen by Provider: 01/04/23 09:48 Source: patient Mode of arrival: ambulatory Limitations: no limitations History of Present Illness HPI narrative: Patient is a 57-year-old male presenting to the emergency department with complaint of scrotal and penile swelling, erythema, and itching/burning sensation since Sunday night. Also reports left eye redness and discomfort since Sunday night, states eye has been crusted over this morning and yesterday morning. Denies any pain with eye movement. States that he was recently in [place] at the [place] and returned on Sunday. He denies any dysuria, frequency, hematuria or other urinary symptoms. Denies any fevers. Denies any penile discharge. Denies any testicular pain. Reports that he has 1 sexual partner and denies concern for STIs. Patient states that he has previously been told he ?may? be diabetic but has not seen a PCP in his adult life time. States that he typically goes to the walk-in clinic for all complaints. MD complaint: scrotal and penile swelling Onset (ago): day(s) Location: eyes and genitals Severity: mild Quality: burning Pain Consistency: constant Relieving factors: rest Exacerbating factors: movement Associated symptoms: denies other symptoms Treatments prior to arrival: none Related Data Previous Rx's Medication Instructions Recorded albuterol sulfate 90 mcg/actuation 2 inh inhalation QID PRN shortness 12/20/22 aerosol inhaler of breath or wheezing #6.7 grams Allergies Allergy/AdvReac Type Severity Reaction Status Date / Time Peanut Butter Allergy Anaphylaxis Verified 01/04/23 09:54 dog hair Allergy Unknown cant breath Uncoded 01/04/23 08:20 Review of Systems 2 Review of Systems: As per HPI Yes all other systems are reviewed and are negative Constitutional: Constitutional: Reports as per HPI PMFSH Past Medical History Medical History Asthma Prediabetes Surgical History Hx of colonoscopy Hx of knee surgery Social History Social History Alcohol intake: current Alcohol type: beer Patient Tobacco Use Status: Never used Tobacco Smoked in Last 30 Days: No Use of substances other than those prescribed or required for medical reasons: No Advance Directives: Yes Advance Directives on File: Yes Advance Directives Date on File: 08/10/20 Current occupational status: employed Current occupation: [employer] - right handed Physical Exam ED Vital Signs: Vital Signs - 24 hr 01/04/23 09:51 01/04/23 10:35 Temperature 98.0 F Pulse Rate 77 72 Respiratory Rate 18 18 Blood Pressure 170/113 H 153/101 H Pulse Oximetry 99 98 Oxygen Delivery Method Room Air Room Air BMI result Body Mass Index 29.4 Vital signs have been reviewed and appear to be correct. Blood pressure elevated. Heart rate normal. Respiratory rate normal. Temperature normal. Oxygen saturation normal. Const General: cooperative, healthy appearing and no acute distress Orientation/consciousness: oriented to person, oriented to place, oriented to time and patient oriented x3 Limitations: no limitations HENMT Head: Yes normocephalic and Yes atraumatic Ears: external ears normal General nose exam: Normal external nose present Face and sinus: Yes face symmetric Mouth: oropharynx normal and moist mucous membranes Throat: Yes uvula midline Eyes Conjunctivae: conjunctival abnormal left conjunctival injection diffuse; without discharge Pupils: Equal, round and reactive pupils present EOM: EOMs intact bilaterally Neck Neck: Yes normal visual inspection and Yes supple Resp Effort & Inspection: normal respiratory effort and able to speak in complete sentences Auscultation: clear to auscultation bilaterally Cardio Rate: regular rate Rhythm: regular rhythm Heart sounds: S1 normal heart sound present and S2 normal heart sound present GI Palpation (GI): Soft to palpation and nontender Auscultation: normoactive bowel sounds Other: Exam chaperoned by MEEK Long. Erythema extending from scrotum to medial upper thighs General: Yes no CVA tenderness Penis: edematous, erythematous and Localized penile swelling present Meatus: no meatla discharge and Erythema at meatus Scrotum: edematous diffuse, erythematous diffuse, testes descended bilaterally, scrotal swelling diffuse and no ulcerations Testes: Testes normal, no epidiymal tenderness and no testicular tenderness Back/Spine/Pelvis Back: no CVA tenderness Skin General skin exam: elasticity normal and turgor normal Neuro General: oriented to person, oriented to place, oriented to time, patient oriented x3, moves all extremities, no focal motor deficits and CN's II-XI intact bilaterally Cranial nerves: Yes Equal, round and reactive pupils present Cognition (Neuro): normal cognition Extrem General: Yes full ROM, Yes no pedal edema and Yes no calf tenderness Psych Mental Status: mental status grossly normal Affect: normal affect Thought process: Normal thought process present Medications Administered Discontinued Medications Generic Name Dose Route Start Last Admin Trade Name Tino PRN Reason Stop Dose Admin Fluorescein Sodium 1 strip 01/04/23 10:32 01/04/23 11:19 Fluorescein Sodium Strip EYE-LEFT 01/04/23 10:33 1 strip ONCE ONE Administration Piperacillin Sod/Tazobactam 50 mls @ 100 mls/hr 01/04/23 13:19 01/04/23 14:53 Sod 3.375 gm/ Sodium Chloride IV 01/04/23 13:48 Infused ONCE ONE Infusion Metronidazole 500 mg in 100 mls @ 100 mls/hr 01/04/23 13:19 01/04/23 14:47 Flagyl IV 01/04/23 14:18 100 mls/hr ONCE ONE Administration Iohexol 100 ml 01/04/23 12:05 01/04/23 12:06 Iohexol 350 Mg/Ml 100 Ml Infus..Btl IV 01/04/23 12:06 85 ml ONCE ONE Administration Medical Decision Making Medical Decision Making [facility] Narrative: 10:45 Patient is a 57-year-old male presenting to the emergency department with complaint of scrotal and penile swelling, erythema, and itching/burning sensation since Sunday night. Also reports left eye redness and discomfort since Sunday night, states eye has been crusted over this morning and yesterday morning. On exam patient is awake, A+Ox3, BP elevated, VS otherwise WNL, afebrile, normal neurological exam without focal deficits, physical exam findings as above. Given reported symptoms and physical exam findings, initial differential includes Mike's gangrene, STI, undiagnosed diabetes, conjunctivitis, corneal abrasion. Low suspicion for testicular torsion. Do not suspect sepsis at this time. Labs notable for absence of leukocytosis, glucose 247, A1c 9.4. CT notable for extensive scrotal wall edema and skin thickening, testes difficult to visualize/evaluate, motion artifact degrades image quality, no gas within the soft tissues. My interpretation is in agreement with the radiologist's interpretation. [place] text to Dr. Anguiano who recommends ordering IV Zosyn and Flagyl, and scrotal ultrasound. 15:15 Ultrasound shows bilateral scrotal wall thickening, testes and epididymis unremarkable. Results [place] Texted to Dr. Anguiano who recommends admission for newly diagnosed diabetes. [place] text to NETTIE Fiore hospitalist. Dr. Mccauley also recommends continuing IV antibiotcs for scrotal cellulitis. Differential Diagnosis Differential Diagnoses: The differential diagnosis associated with the presentation includes As per [facility] Admission/Observation Consideration of admission/observation: Escalation of care including admission/observation considered Consult Healthcare Provider Management of the patient was discussed with: Hospitalist (NETTIE Fiore) and Cloth Worker (Dr. Anguiano) Lab Data [facility] Lab Attestation statement: I reviewed the patient's lab results. As per [facility] 01/04/23 10:57 01/04/23 10:57 Labs: Lab Results 01/04/23 01/04/23 Range/Units 10:57 11:37 WBC 9.0 (4.8-10.8) X10*3/uL RBC 5.26 (4.60-5.80) X10*6/uL Hgb 16.0 (14.0-18.0) g/dl Hct 44.3 (42.0-52.0) % MCV 84.2 (80.0-98.0) fL MCH 30.4 (27.0-33.0) pg MCHC 36.1 H (31.0-36.0) g/dl RDW 12.7 (11.0-16.0) % Plt Count 175 (160-400) X10*3/uL MPV 10.4 (9.4-12.4) fL Immature Gran % (Auto) 0.4 (0.0-0.4) % Neut % (Auto) 63.9 (45-73) % Lymph % (Auto) 23.1 (20-40) % [place] % (Auto) 8.6 (2-11) % Eos % (Auto) 3.7 (0-4) % Baso % (Auto) 0.3 (0-2) % Lymph # (Auto) 2.1 (1.2-4.9) X10*3/uL [place] # (Auto) 0.8 (0.1-1.2) X10*3/uL Eos # (Auto) 0.3 (0.0-0.4) X10*3/uL Baso # (Auto) 0.0 (0.0-0.2) X10*3/uL Abs Immat Gran (auto) 0.04 H (0.00-0.03) X10*3/uL Absolute Neuts (auto) 5.7 (2.0-8.3) x10*3/uL Absolute Nucleated RBC 0.000 (0.0-0.012) X10*3/uL Nucleated RBC % (auto) 0.0 (0.0-0.2) /100WBC Sodium 136 (135-145) mmol/L Potassium 4.4 (3.3-5.1) mmol/L Chloride 100 (96-108) mmol/L Carbon Dioxide 24 (22-29) mmol/L Anion Gap 16 (12-20) BUN 10 (9-16) mg/dL Creatinine 0.83 (0.5-1.4) mg/dL Estim Creat Clear Calc 109.7 Estimated GFR > 60 Random Glucose 247 H (60-115) mg/dL Estimat Average Glucose 223 mg/dL Hemoglobin A1c % 9.4 H (<6.0) % Calcium 9.7 (8.4-10.2) mg/dL Total Bilirubin 1.7 H (0.0-1.0) mg/dL AST 23 (5-37) U/L ALT 41 H (0-40) U/L Alkaline Phosphatase 69 (39-117) U/L Total Protein 7.3 (6.5-8.0) g/dL Albumin 4.3 (3.5-5.0) g/dL Urine Color Yellow Urine Appearance Clear Urine pH 6.0 (5.0-9.0) Ur Specific [place] 1.010 (1.005-1.025) Urine Protein Negative (Neg-Trace) mg/dL Urine Glucose (UA) >=1000 H (Negative) mg/dL Urine Ketones Negative (Negative) mg/dL Urine Blood Negative (Negative) Urine Nitrite Negative (Negative) Ur Leukocyte Esterase Negative (Negative) Urine RBC 0-2 (0-2) /HPF Urine WBC 0-5 (0-5) /HPF Ur Squamous Epith Cells 0-2 (0-2) /HPF Urine Bacteria None Seen (None Seen) Hyaline Casts 0-2 (0-2) /LPF Chlam trachomat DNA PCR NOT DETECTED (Not Detect.) N.gonorrhoeae DNA (PCR) NOT DETECTED (Not Detect.) Independent Interpretation I performed an independent interpretation of an: Ultrasound and CT Scan Interpretation: CT: extensive scrotal wall edema and skin thickening. No gas within soft tissues. U/S: bilateral scrotal wall thickening, testes and epididymis unremarkable Radiology Impression Discussion of test interpretation with radiology: I have reviewed the radiologist's reading. Radiologist Impression: CT/CT pelvis w IV con IMPRESSION: Extensive scrotal wall edema and skin thickening. The testes are difficult to visualize/evaluate. Motion artifact technically degrades image quality. No gas within the soft tissues. US/US scrotum IMPRESSION: 1. Bilateral scrotal wall thickening. 2. The testes and epididymis are unremarkable. Independent Historian Clinical information obtained from an independent historian. History obtained from or confirmed by: Spouse External Record Review External record reviewed: Inpatient record, Office record and Outpatient record Prescription Management I considered prescription management with: Antibiotic Discharge Plan Discharge Prescriptions: No Action albuterol sulfate 90 mcg/actuation HFA aerosol inhaler 2 inh inhalation QID PRN (Reason: shortness of breath or wheezing) Qty: 6.7 1RF
--- NOTE | 2023-01-04 10:33 | PC.NURSE ---
calm, coop. no pain reported. reports itchiness/redness/swelling to scrotum/penile swelling. exam at bedside by LEONA ibarra rn chaperoned
[2023-01-04 10:35] VITALS: BP 153/101; PULSE 72; RESP 18; O2SAT 98
[2023-01-04 11:01] LABS: MANUAL DIFF FLAG NO
[2023-01-04 11:06] LABS: Basophils Percent Auto 0.3 % (0-2); Eosinophils Absolute Auto 0.3 X10*3/uL (0.0-0.4); Eosinophils Percent Auto 3.7 % (0-4); Hematocrit 44.3 % (42.0-52.0); Imm Gran Abs Auto 0.04 X10*3/uL (0.00-0.03); Imm Gran Pct Auto 0.4 % (0.0-0.4); Lymphocytes Absolute Auto 2.1 X10*3/uL (1.2-4.9); Lymphocytes Percent Auto 23.1 % (20-40); Mean Corpuscular HGB Conc 36.1 g/dl (31.0-36.0); Mean Corpuscular Hemoglobin 30.4 pg (27.0-33.0); Mean Corpuscular Volume 84.2 fL (80.0-98.0); Mean Platelet Volume 10.4 fL (9.4-12.4); Monocytes Absolute Auto 0.8 X10*3/uL (0.1-1.2); Monocytes Percent Auto 8.6 % (2-11); Neutrophils Absolute Auto 5.7 x10*3/uL (2.0-8.3); Neutrophils Percent Auto 63.9 % (45-73); Platelet Count 175 X10*3/uL (160-400); Red Blood Count 5.26 X10*6/uL (4.60-5.80); Red Cell Distribution Width 12.7 % (11.0-16.0)
[2023-01-04 11:17] LABS: Alanine Aminotransferase 41 U/L (0-40); Albumin Level 4.3 g/dL (3.5-5.0); Alkaline Phosphatase 69 U/L (39-117); Anion Gap 16 (12-20); Aspartate Amino Transferase 23 U/L (5-37); Bilirubin Total 1.7 mg/dL (0.0-1.0); Blood Urea Nitrogen 10 mg/dL (9-16); Calcium 9.7 mg/dL (8.4-10.2); Carbon Dioxide 24 mmol/L (22-29); Chloride 100 mmol/L (96-108); Creatinine Clr Calc Pharmacy 109.7; Estimated Glomerular Filt Rate > 60; Glucose Random 247 mg/dL (60-115); Potassium 4.4 mmol/L (3.3-5.1); Sodium 136 mmol/L (135-145); Total Protein 7.3 g/dL (6.5-8.0)
[2023-01-04] MEDS: Fluorescein Sodium STRIP 1 STRIP EYE-LEFT (11:19)
[2023-01-04 11:48] LABS: Appearance Urine Clear; Color Urine Yellow; Glucose Urine UA >=1000 mg/dL (Negative); Leukocyte Esterase Urine Negative (Negative); Nitrite Urine Negative (Negative); UMIC TRIGGER UACC YES; Urine Blood Negative (Negative); Urine Ketones Negative (Negative); Urine Protein Negative (Neg-Trace)
[2023-01-04 11:51] LABS: Bacteria Urine None Seen (None Seen); Hyaline Casts Urine 0-2 /LPF (0-2); RBC Urine 0-2 /HPF (0-2); Squamous Epithelial Cell Urine 0-2 /HPF (0-2); WBC Urine 0-5 /HPF (0-5)
[2023-01-04 11:58] LABS: Estimated Average Glucose 223 mg/dL; Hemoglobin A1c % 9.4 % (<6.0)
[2023-01-04] MEDS: iohexoL 350 MG/ML 100 ML INFUS..BTL IV (12:06)
[2023-01-04 13:14] LABS: CT PCR NOT DETECTED (Not Detect.); NG PCR NOT DETECTED (Not Detect.)
[2023-01-04] MEDS: Piperacillin Sodium/Tazobactam 3.375 GM in 0.9 % Sodium Chloride 50 ML IV ×2 (13:53→20:12)
--- NOTE | 2023-01-04 13:53 | PC.NURSE ---
aox4. calm, coop. +CMS. blood cult x2 sent w [facility] x2.
--- NOTE | 2023-01-04 14:00 | PC.NURSE ---
pt in [place]
[2023-01-04] MEDS: metroNIDAZOLE/NS 500 MG/100 ML PIGGYBACK 100 MG IV (14:47)
--- NOTE | 2023-01-04 16:18 | PHA.MEDREC ---
Pharmacy Consult ? Medication Reconciliation Pharmacy has completed the medication reconciliation. Patient reported medications.
--- NOTE | 2023-01-04 16:23 | P.HPHOSP_ITS ---
History of Present Illness Date of Service: 01/04/23 Chief Complaint: scrotal swelling 57M no significant PMH presented with scrotal swelling and left eye pruritis, crusting. Patient returned from [facility] where he was swimming in the ocean. About 2 days prior to present change start at developed scrotal erythema, swelling, pruritus as well as left eye redness, itchiness, crusting, some improvement with ofloxacin eyedrops. Denies fever, chills, pain, swelling and others. Denies dysuria, only 1 sexual partner. Labs significant for elevated totally bilirubin and ALT, as well as hyperglycemia, glucosuria, and elevated A1c consistent with new diagnosis of diabetes. Review of Systems 2 Review of Systems: Yes all other systems are reviewed and are negative [facility] Medical History Prediabetes Asthma Surgical History Hx of knee surgery Hx of colonoscopy Social History Alcohol intake: current Alcohol type: beer Patient Tobacco Use Status: Never used Tobacco Smoked in Last 30 Days: No Use of substances other than those prescribed or required for medical reasons: No Advance Directives: Yes Advance Directives on File: Yes Advance Directives Date on File: 08/10/20 Current occupational status: employed Current occupation: [employer] - right handed Meds Allergies Allergy/AdvReac Type Severity Reaction Status Date / Time Peanut Butter Allergy Anaphylaxis Verified 01/04/23 09:54 dog hair Allergy Unknown cant breath Uncoded 01/04/23 08:20 Home Medications Medication Instructions Recorded Confirmed Last Taken Type multivitamin 1 tab PO DAILY 01/04/23 01/04/23 Unknown History Physical Exam 2 Vital Signs and Narrative: Vital Signs: Last Vital Signs Temp 98.0 F 01/04/23 09:51 Pulse 72 01/04/23 10:35 Resp 18 01/04/23 10:35 BP 153/101 H 01/04/23 10:35 Pulse Ox 98 01/04/23 10:35 O2 Del Method Room Air 01/04/23 10:35 BMI result Body Mass Index 29.4 General: AO X 3, no acute distress Resp: CTA bilateral, no accessory muscles used CVS: S1,S2,RRR GI: soft, non tender, non distended Neuro: motor grossly intact, alert Psych: appropriate affect, appropriate insight left eye conjuctival injection bilateral scrotal and penile swelling some mild erythema. Results Labs 01/04/23 10:57 01/04/23 10:57 Labs: Laboratory Results - last 24 hr 01/04/23 01/04/23 10:57 11:37 MCV 84.2 MCH 30.4 MCHC 36.1 H RDW 12.7 Plt Count 175 MPV 10.4 Immature Gran % (Auto) 0.4 Neut % (Auto) 63.9 Lymph % (Auto) 23.1 [place] % (Auto) 8.6 Eos % (Auto) 3.7 Baso % (Auto) 0.3 Lymph # (Auto) 2.1 [place] # (Auto) 0.8 Eos # (Auto) 0.3 Baso # (Auto) 0.0 Abs Immat Gran (auto) 0.04 H Absolute Neuts (auto) 5.7 Absolute Nucleated RBC 0.000 Nucleated RBC % (auto) 0.0 Anion Gap 16 Estim Creat Clear Calc 109.7 Estimated GFR > 60 Random Glucose 247 H Estimat Average Glucose 223 Hemoglobin A1c % 9.4 H Calcium 9.7 Total Bilirubin 1.7 H AST 23 ALT 41 H Alkaline Phosphatase 69 Total Protein 7.3 Albumin 4.3 Urine Color Yellow Urine Appearance Clear Urine pH 6.0 Ur Specific [place] 1.010 Urine Protein Negative Urine Glucose (UA) >=1000 H Urine Ketones Negative Urine Blood Negative Urine Nitrite Negative Ur Leukocyte Esterase Negative Urine RBC 0-2 Urine WBC 0-5 Ur Squamous Epith Cells 0-2 Urine Bacteria None Seen Hyaline Casts 0-2 Chlam trachomat DNA PCR NOT DETECTED N.gonorrhoeae DNA (PCR) NOT DETECTED Imaging Radiologist's Impressions: Impressions Pelvis CT 01/04/23 12:04 IMPRESSION: Extensive scrotal wall edema and skin thickening. The testes are difficult to visualize/evaluate. Motion artifact technically degrades image quality. No gas within the soft tissues. Scrotum Ultrasound 01/04/23 14:13 IMPRESSION: 1. Bilateral scrotal wall thickening. 2. The testes and epididymis are unremarkable. Assessment and Plan (1) Elevated glucose level: Status: Acute Plan 57M no significant PMH presented with scrotal swelling and left eye pruritis, crusting found to have new onset DM and elevated lfts left eye conjunctivitis moxifloxacin opth scrotal swelling with possible superimposed bacterial cellulitis zosyn, cultures, gu eval differential includes scrotal cellulitis in DM, topical irritant from ocean new DM pocs, start metformin elevated lfts suspect combination of CARSON and ANANYA (drinks several beers daily) check abd us, viral hepatitis dvt prophylaxis - lovenox full code Time Spent With Patient Time: Total time managing care of this patient today ____ minutes. Quality Stroke Does the patient have a stroke diagnosis?: No VTE Prior VTE?: No VTE Risk Level:: Medical - moderate - high VTE Device Contraindication: Treatment Not Indicated VTE Drug Contraindication: N/A - Med Ordered
[2023-01-04 16:24] LABS: Bilirubin Direct 0.4 mg/dL (0.0-0.5)
--- NOTE | 2023-01-04 17:07 | P.CNUR_ITS ---
History of Present Illness Consult details Consult date: 01/04/23 Narrative: 57-year-old male presenting to the emergency department with complaint of scrotal and penile swelling, erythema, and itching/burning sensation acute onset since Sunday. Also reports left eye redness and discomfort since Sunday, States that he was recently in [place] at the beach and returned on Sunday. He denies any dysuria, frequency, hematuria or other urinary symptoms. Denies any fevers. Denies any penile discharge. Exam- significant scrotal and penile swelling, no cellulitis observed, nontender; Scrotal US - testes wnL Plan - supportive, antihistamine, steroid cream, keep scrotum elevated on folded towel. Review of Systems 2 Review of Systems: 10 point ROS negative other than stated in HPI PMFSH Past Medical History Medical History Prediabetes Asthma Surgical History Surgical History Hx of knee surgery Hx of colonoscopy Social History Social History Household Members: Spouse Housing: House Do you presently have visiting nurse or other home services: No Alcohol intake: current Alcohol type: beer Patient Tobacco Use Status: Never used Tobacco Smoked in Last 30 Days: No Use of substances other than those prescribed or required for medical reasons: No Have you been hit, kicked, punched, or otherwise hurt by someone within the past year? If so, by whom?: No Do you feel safe in your current relationship?: Yes Is there a partner from a previous relationship who is making you feel unsafe now?: No Are you made to feel afraid or neglected: No Taoist Healthcare Practices: hoahaoism Advance Directives: Yes Advance Directives on File: Yes Advance Directives Date on File: 08/10/20 Do you have thoughts of harming others: None Do you have a plan to hurt others: No Plan Recently lost weight without trying: No Eating poorly because of decreased appetite: No Nutrition Risks: No Nutritional Risk Poor oral hygiene: No Current occupational status: employed Current occupation: [employer] - right handed Meds Allergies Allergy/AdvReac Type Severity Reaction Status Date / Time Peanut Butter Allergy Anaphylaxis Verified 01/04/23 09:54 dog hair Allergy Unknown cant breath Uncoded 01/04/23 08:20 Active Medications: Current Medications Albuterol Sulfate (Albuterol Sulfate 90 Mcg 8 Gm Inhaler) 2 puff INHALE QID PRN PRN Reason: shortness of breath or wheezing Dextrose (Dextrose 50 % 25 Gm/50 Ml Syringe) 25 gm IVPUSH Q15M PRN; Protocol PRN Reason: per Hypoglycemia Standing Ord. Enoxaparin Sodium (Enoxaparin Sodium 40 Mg/0.4 Ml Syringe) 40 mg SUBCUT Q24H BIA Glucose (Glucose Gel 15 Gm Gel..Gram.) 15 gm PO Q15M PRN; Protocol PRN Reason: per Hypoglycemia Standing Ord. Piperacillin Sod/Tazobactam (Sod 3.375 gm/ Sodium Chloride) 50 mls @ 100 mls/hr IV Q6H [facility] Insulin Human Lispro (Insulin Lispro 100 Unit/Ml 3 Ml Vial) 0 unit SUBCUT QIDACHS BIA; Protocol Metformin HCl (Metformin Hcl 1,000 Mg Tablet) 1,000 mg PO BIDWM [facility] Moxifloxacin HCl (Moxifloxacin Hcl 0.5 % Oph Maranda 3 Ml Drpbtl) 1 drop EYE-LEFT TID [facility] Stop: 01/11/23 16:22 Multivitamins/Vitamin C (Multivitamin Tablet) 1 tab PO DAILY [facility] Sodium Chloride (0.9 % Sodium Chloride Flush 3 Ml Syringe) 3 ml IVFLUSH QSHIFT [facility] Home Medications Medication Instructions Recorded Confirmed Last Taken Type multivitamin 1 tab PO DAILY 01/04/23 01/04/23 Unknown History Physical Exam 2 Vital Signs: Vital Signs: Last Vital Signs Temp 98.0 F 01/04/23 09:51 Pulse 72 01/04/23 10:35 Resp 18 01/04/23 10:35 BP 153/101 H 01/04/23 10:35 Pulse Ox 98 01/04/23 10:35 O2 Del Method Room Air 01/04/23 10:35 BMI result Body Mass Index 29.4 Const: General: healthy appearing, no acute distress and well developed O rientation/consciousness: patient oriented x3 HEENT: Head: Yes normocephalic and Yes atraumatic Eyes: Conjunctivae: conjunctivae normal Neck: Neck: Yes normal visual inspection Chest: Chest palpation & inspection: normal inspection of the chest Resp: Effort & Inspection: normal respiratory effort Cardio: Rate: regular rate GI: Inspection: Yes normal to inspection Palpation (GI): Soft to palpation : Penis: circumcised and Localized penile swelling present Scrotum: e dematous Skin: General skin exam: no rashes or lesions noted Neuro: General: patient oriented x3 Extrem: General: No pedal edema Psych: Appearance: grossly normal Affect: normal affect Results Labs 01/04/23 10:57 01/04/23 10:57 Labs: Abnormal lab results 01/04/23 01/04/23 Range/Units 10:57 11:37 MCHC 36.1 H (31.0-36.0) g/dl Abs Immat Gran (auto) 0.04 H (0.00-0.03) X10*3/uL Random Glucose 247 H (60-115) mg/dL Hemoglobin A1c % 9.4 H (<6.0) % Total Bilirubin 1.7 H (0.0-1.0) mg/dL ALT 41 H (0-40) U/L Urine Glucose (UA) >=1000 H (Negative) mg/dL Short CBC 01/04/23 Range/Units 10:57 WBC 9.0 (4.8-10.8) X10*3/uL Hgb 16.0 (14.0-18.0) g/dl Hct 44.3 (42.0-52.0) % Plt Count 175 (160-400) X10*3/uL BMP 01/04/23 10:57 Sodium 136 Potassium 4.4 Chloride 100 Carbon Dioxide 24 BUN 10 Creatinine 0.83 Calcium 9.7 Liver Function 01/04/23 Range/Units 10:57 Total Bilirubin 1.7 H (0.0-1.0) mg/dL Direct Bilirubin 0.4 (0.0-0.5) mg/dL AST 23 (5-37) U/L ALT 41 H (0-40) U/L Alkaline Phosphatase 69 (39-117) U/L Albumin 4.3 (3.5-5.0) g/dL Urine 01/04/23 Range/Units 11:37 Urine Color Yellow Urine Appearance Clear Urine pH 6.0 (5.0-9.0) Ur Specific [place] 1.010 (1.005-1.025) Urine Protein Negative (Neg-Trace) mg/dL Urine Glucose (UA) >=1000 H (Negative) mg/dL Imaging Additional studies: Date of Service: 01/04/23 EXAMINATION: US SCROTUM CLINICAL INFORMATION: Swelling, erythema. COMPARISON: None available. TECHNIQUE: A sonogram of the scrotum was performed assessing pizano-scale appearance and color Doppler flow. Spectral Doppler analysis of the arterial and venous flow were performed in the testes bilaterally. FINDINGS: RIGHT: Right testicle measures 5.3 x 2.8 x 4.0 cm, volume 31.4 mL. No focal testicular parenchymal lesions are visualized. Spectral Doppler analysis of the arterial and venous flow is normal in the right testis. Right epididymal head is normal in size. No right hydrocele or varicocele is seen. Right epididymal Doppler flow is normal. LEFT: Left testicle measures 5.0 x 3.1 x 3.8 cm, volume 31 mL. No focal testicular parenchymal lesions are visualized. Spectral Doppler analysis of the arterial and venous flow is normal in the left testis. Left epididymal head is normal in size. No left hydrocele or varicocele is seen. Left epididymal Doppler flow is normal. Incidental finding of left epididymis appendix. There is bilateral scrotal wall thickening IMPRESSION: 1. Bilateral scrotal wall thickening. 2. The testes and epididymis are unremarkable. 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 COMPARISON: None available. TECHNIQUE: Helical scanning was performed with submillimeter collimation through the pelvis with the use of oral contrast and during bolus intravenous injection of 85 mL of Omnipaque 350 intravenous contrast. Sagittal and coronal multiplanar 2-D reconstructions were obtained. This CT examination was performed using dose optimization techniques as appropriate, variously including the following: *Automated exposure control *Adjustment of mA and/or kV according to patient size (this includes techniques or standardized protocols for targeted exams where dose is matched to indication/reason for exam; i.e. extremities or head) *Use of iterative reconstruction technique DLP: 296 mGy-cm FINDINGS: PELVIS: Bilateral extensive scrotal wall edema and skin thickening. The testes are difficult to visualize/evaluate. Motion artifact technically degrades image quality. Small peritesticular fluid likely on a reactive basis. No gas within the soft tissues. Nonspecific subcentimeter mesenteric lymph nodes. Imaged loops of small and large bowel are not obstructed. No bulky pelvic lymphadenopathy. The prostate gland and seminal vesicles are within normal limits. The urinary bladder is unremarkable. No free fluid in the pelvis. OSSEOUS STRUCTURES: No destructive bone lesions. IMPRESSION: Extensive scrotal wall edema and skin thickening. The testes are difficult to visualize/evaluate. Motion artifact technically degrades image quality. No gas within the soft tissues. Assessment and Plan (1) Scrotum swelling: Status: Acute (2) Pruritus of scrotum: Status: Acute (3) Penile swelling: Status: Acute Plan Plan - supportive, antihistamine, steroid cream, keep scrotum elevated on folded towel. Hold on Antibiotics at this time Out patient FU, pt informed may take up to 6 weeks to resolve. Time Spent With Patient Time: Total time managing care of this patient today ____ minutes. Procedures Date of Service Date of Service: 01/04/23
--- NOTE | 2023-01-04 17:23 | PC.NURSE ---
report called to MS Bibi RN. belongings list completed. pt to be transported to room 379
[2023-01-04 18:03] VITALS: BMI 29.4
[2023-01-04 18:18] LABS: B Type Natriuretic Peptide 31 pg/mL (<100)
[2023-01-04 18:27] VITALS: BP 152/98; PULSE 82; RESP 16; TEMP 36.4; O2SAT 96
[2023-01-04 19:38] VITALS: BP 142/90; PULSE 88; RESP 18; TEMP 36.5; O2SAT 97
[2023-01-04 20:00] LABS: Glucose, Whole Blood 294 mg/dL (60-115)
[2023-01-04] MEDS: Insulin Lispro 100 UNIT/ML 3 ML VIAL SUBCUT (20:13)
[2023-01-04] MEDS: diphenhydrAMINE HCL 50 MG/ML VIAL IVPUSH (20:53)
[2023-01-05] MEDS: Piperacillin Sodium/Tazobactam 3.375 GM in 0.9 % Sodium Chloride 50 ML IV ×2 (02:11→08:49)
[2023-01-05 04:00] VITALS: BP 122/74; PULSE 69; RESP 16; TEMP 36.3; O2SAT 96
[2023-01-05 06:23] LABS: Hematocrit 43.2 % (42.0-52.0); Mean Corpuscular HGB Conc 34.7 g/dl (31.0-36.0); Mean Corpuscular Hemoglobin 29.6 pg (27.0-33.0); Mean Corpuscular Volume 85.2 fL (80.0-98.0); Mean Platelet Volume 10.7 fL (9.4-12.4); Platelet Count 171 X10*3/uL (160-400); Red Blood Count 5.07 X10*6/uL (4.60-5.80); Red Cell Distribution Width 12.7 % (11.0-16.0)
[2023-01-05 06:28] LABS: Alanine Aminotransferase 32 U/L (0-40); Albumin Level 3.7 g/dL (3.5-5.0); Alkaline Phosphatase 62 U/L (39-117); Anion Gap 15 (12-20); Aspartate Amino Transferase 16 U/L (5-37); Bilirubin Direct 0.4 mg/dL (0.0-0.5); Bilirubin Total 1.6 mg/dL (0.0-1.0); Blood Urea Nitrogen 12 mg/dL (9-16); Calcium 8.7 mg/dL (8.4-10.2); Carbon Dioxide 26 mmol/L (22-29); Chloride 103 mmol/L (96-108); Creatinine Clr Calc Pharmacy 103.5; Estimated Glomerular Filt Rate > 60; Glucose Fasting 228 mg/dL (60-99); Potassium 4.3 mmol/L (3.3-5.1); Sodium 140 mmol/L (135-145); Total Protein 6.2 g/dL (6.5-8.0)
[2023-01-05 06:30] LABS: Prothrombin Time 12.1 SEC (11.1-13.3)
[2023-01-05 06:44] LABS: HBS Num1 0.06 mIU/mL (0-7.99); HBc Num1 0.05 S/CO (0.00-0.79); HBsAGNum1 0.33 S/CO (0.00-0.99); Hepatitis B Core Antibody Nonreactive (Nonreactive); Hepatitis B Surface Antigen Negative (Negative); ~HepC Num1 0.03 S/CO (0.00-0.79); ~Hepatitis B Surface Antibody NONREACTIVE (Nonreactive); ~Hepatitis C Antibody Nonreactive (Nonreactive)
[2023-01-05 07:14] VITALS: BP 148/92; PULSE 74; RESP 18; TEMP 36.8; O2SAT 95
[2023-01-05 07:31] LABS: Glucose, Whole Blood 207 mg/dL (60-115)
[2023-01-05] MEDS: Insulin Lispro 100 UNIT/ML 3 ML VIAL SUBCUT (07:44)
[2023-01-05] MEDS: Enoxaparin Sodium 40 MG/0.4 ML SYRINGE SUBCUT (07:44)
[2023-01-05] MEDS: Multivitamin TABLET 1 TAB PO (07:45)
[2023-01-05] MEDS: 0.9 % Sodium Chloride Flush 3 ML SYRINGE IVFLUSH (07:45)
[2023-01-05] MEDS: Moxifloxacin HCl 0.5 % Oph Sol 3 ML DRPBTL 1 DROP EYE-LEFT (08:49)
[2023-01-05] MEDS: diphenhydrAMINE HCL 50 MG/ML VIAL 25 MG IVPUSH (08:49)
--- NOTE | 2023-01-05 10:54 | PM.DS ---
DS: Providers Provider Date of Service: 01/05/23 Date of admission: 01/04/23 16:19 Primary care physician: Neo Holman MD Consults: 01/04/23 16:19 Consult to Urology Routine Consulting Provider: Loan Anguiano Reason for consultation: scrotal swelling DS: Diagnosis Discharge Diagnosis (1) Scrotum swelling: Status: Acute (2) Pruritus of scrotum: Status: Acute (3) Penile swelling: Status: Acute DS: Summary Hospital Course Hospital Course: from initial hpi: 57M no significant PMH presented with scrotal swelling and left eye pruritis, crusting. Patient returned from [facility] where he was swimming in the ocean. About 2 days prior to present change start at developed scrotal erythema, swelling, pruritus as well as left eye redness, itchiness, crusting, some improvement with ofloxacin eyedrops. Denies fever, chills, pain, swelling and others. Denies dysuria, only 1 sexual partner. Labs significant for elevated totally bilirubin and ALT, as well as hyperglycemia, glucosuria, and elevated A1c consistent with new diagnosis of diabetes. hospital course: Patient was admitted for scrotal swelling. Most likely this was due to topical irritant, was seen by Urology recommended discontinue antibiotics as cellulitis unlikely and using topical steroids and antihistamines. For left eye conjunctivitis will be treated moxifloxacin. Patient noted to have a new diagnosis of diabetes with hyperglycemia, he will be started on metformin and should follow up outpatient with the PCP. Also noted to have fatty liver disease with splenomegaly, likely combination of alcoholic fatty liver and nonalcoholic fatty liver. Alcohol abstinence is recommended and should follow up with primary care. Time Spent with Patient Time attestation: Total time managing care of this patient today ____ minutes. Discharge coordination time: Greater than 30 minutes Quality: Safe Use of Opioids Does Pt have an Active Cancer Diagnosis on the Problem List?: No Quality: Stroke Does the patient have a stroke diagnosis?: No Physical Exam Vital Signs: Vital Signs: Last Vital Signs Temp 98.2 F 01/05/23 07:14 Pulse 74 01/05/23 07:14 Resp 18 01/05/23 07:14 BP 148/92 H 01/05/23 07:14 Pulse Ox 95 01/05/23 07:14 O2 Del Method Room Air 01/05/23 07:14 BMI result Body Mass Index 29.4 Const: General: healthy appearing, no acute distress and well developed Orientation/consciousness: patient oriented x3 HEENT: Head: Yes normocephalic and Yes atraumatic Eyes: Conjunctivae: conjunctivae normal Neck: Neck: Yes normal visual inspection Chest: Chest palpation & inspection: normal inspection of the chest Resp: Effort & Inspection: normal respiratory effort Cardio: Rate: regular rate GI: Inspection: Yes normal to inspection Palpation (GI): Soft to palpation : Penis: circumcised and Localized penile swelling present Scrotum: edematous Skin: General skin exam: no rashes or lesions noted Neuro: General: patient oriented x3 Extrem: General: No pedal edema Psych: Appearance: grossly normal Affect: normal affect DS: Data Data Completed and Pending Labs on day of discharge: Laboratory Results - last 24 hr 01/04/23 01/04/23 01/04/23 10:57 11:37 17:51 WBC 9.0 RBC 5.26 Hgb 16.0 Hct 44.3 MCV 84.2 MCH 30.4 MCHC 36.1 H RDW 12.7 Plt Count 175 MPV 10.4 Immature Gran % (Auto) 0.4 Neut % (Auto) 63.9 Lymph % (Auto) 23.1 [place] % (Auto) 8.6 Eos % (Auto) 3.7 Baso % (Auto) 0.3 Lymph # (Auto) 2.1 [place] # (Auto) 0.8 Eos # (Auto) 0.3 Baso # (Auto) 0.0 Abs Immat Gran (auto) 0.04 H Absolute Neuts (auto) 5.7 Absolute Nucleated RBC 0.000 Nucleated RBC % (auto) 0.0 PT INR Sodium 136 Potassium 4.4 Chloride 100 Carbon Dioxide 24 Anion Gap 16 BUN 10 Creatinine 0.83 Estim Creat Clear Calc 109.7 Estimated GFR > 60 POC Glucose Random Glucose 247 H Fasting Glucose Estimat Average Glucose 223 Hemoglobin A1c % 9.4 H Calcium 9.7 Total Bilirubin 1.7 H Direct Bilirubin 0.4 AST 23 ALT 41 H Alkaline Phosphatase 69 B-Natriuretic Peptide 31 Total Protein 7.3 Albumin 4.3 Urine Color Yellow Urine Appearance Clear Urine pH 6.0 Ur Specific [place] 1.010 Urine Protein Negative Urine Glucose (UA) >=1000 H Urine Ketones Negative Urine Blood Negative Urine Nitrite Negative Ur Leukocyte Esterase Negative Urine RBC 0-2 Urine WBC 0-5 Ur Squamous Epith Cells 0-2 Urine Bacteria None Seen Hyaline Casts 0-2 Chlam trachomat DNA PCR NOT DETECTED Hep Bs Antigen Hep Bs Antibody Hep B Core Total Ab Hepatitis C Ab (EIA) N.gonorrhoeae DNA (PCR) NOT DETECTED 01/04/23 01/05/23 01/05/23 19:43 05:43 07:28 WBC 8.0 RBC 5.07 Hgb 15.0 Hct 43.2 MCV 85.2 MCH 29.6 MCHC 34.7 RDW 12.7 Plt Count 171 MPV 10.7 Immature Gran % (Auto) Neut % (Auto) Lymph % (Auto) [place] % (Auto) Eos % (Auto) Baso % (Auto) Lymph # (Auto) [place] # (Auto) Eos # (Auto) Baso # (Auto) Abs Immat Gran (auto) Absolute Neuts (auto) Absolute Nucleated RBC 0.000 Nucleated RBC % (auto) 0.0 PT 12.1 INR 1.0 Sodium 140 Potassium 4.3 Chloride 103 Carbon Dioxide 26 Anion Gap 15 BUN 12 Creatinine 0.88 Estim Creat Clear Calc 103.5 Estimated GFR > 60 POC Glucose 294 H 207 H Random Glucose Fasting Glucose 228 H Estimat Average Glucose Hemoglobin A1c % Calcium 8.7 D Total Bilirubin 1.6 H Direct Bilirubin 0.4 AST 16 ALT 32 Alkaline Phosphatase 62 B-Natriuretic Peptide Total Protein 6.2 L Albumin 3.7 Urine Color Urine Appearance Urine pH Ur Specific [place] Urine Protein Urine Glucose (UA) Urine Ketones Urine Blood Urine Nitrite Ur Leukocyte Esterase Urine RBC Urine WBC Ur Squamous Epith Cells Urine Bacteria Hyaline Casts Chlam trachomat DNA PCR Hep Bs Antigen Negative Hep Bs Antibody NONREACTIVE Hep B Core Total Ab Nonreactive Hepatitis C Ab (EIA) Nonreactive N.gonorrhoeae DNA (PCR) Discharge Plan Discharge Anticipated Discharge Date/Time: 01/05/23 10:40 Patient Disposition: Home, Self-Care Discharge Diagnosis: new DM2, fatty liver, scrotal swelling, conjunctivitis Referrals: Loan Anguiano MD [Physician] - 1 Week Neo Holman MD [Primary Care Provider] - 1 Week Discharge Medications: New metformin 1,000 mg Tablet 1,000 mg PO BIDWM Qty: 60 0RF moxifloxacin 0.5 % Drops 1 drp ophthalmic-Left TID 5 Days Qty: 3 0RF hydrocortisone 2.5 % cream 1 appl topical BID Qty: 28 0RF diphenhydramine HCl 25 mg tablet 25 mg PO TID PRN (Reason: pruritis) Qty: 10 0RF (DME) FreeStyle Lite Strips Strip Qty: 100 0RF Rx Instructions: Test four times a day or as directed. (DME) blood-glucose meter [FreeStyle Lite Meter] Kit Qty: 1 0RF Rx Instructions: As Directed alcohol swabs Pads, Medicated 1 pad TOPICAL QIDACHS Qty: 100 0RF Rx Instructions: Use four times a day or as directed. (DME) pen needle, diabetic 32 gauge x 1/4 needle Qty: 100 0RF Rx Instructions: Use four times a day or as directed. (DME) lancets [FreeStyle Lancets] 28 gauge misc Qty: 100 0RF Rx Instructions: Test four times a day or as directed. Continued multivitamin Tablet 1 tab PO DAILY albuterol sulfate 90 mcg/actuation HFA aerosol inhaler 2 inh inhalation QID PRN (Reason: shortness of breath or wheezing) Qty: 6.7 1RF Discharge Orders: Discharge Order (Routine); Ordered 01/05/23 Ordered By: Aurelio Santiago Diet: Advance to usual diet Activity on Discharge: As tolerated Stand Alone Forms: Patient Portal Discharge page Care Plan Goals: recovery Health Concerns: scrotal swelling, new dm, fatty liver Plan of Treatment: scrotal swelling - probably topical irritant - topical steroids, antihistamines, follow up urology conjunctivits - moxifloxacin new DM - metformin, monitor glucose, follow up with a pcp fatty liver - stop etoh, follow up with pcp Assessment: see above
[2023-01-05 11:08] LABS: Glucose, Whole Blood 167 mg/dL (60-115)
--- NOTE | 2023-01-05 11:32 | MHC.CM.PN ---
PT REPORTS HE LIVES AT HOME WITH HIS AND IS INDEPENDENT WITH CARE HE HAS NO DME AND NO SERVICES PT REPORTS HE HAS A HCP NAMING HIS THE AGENT, COPY REQUESTED PCP: SHOSHANA [facility] OBSERVATION NOTICE DELIVERED PT WILL DC HOME TODAY WITH NO SERVICES VIA FAMILY TRANSPORT
== END 2023-01-05 13:06 | disposition home or self-care (01) ==
LOC: HO.ED 15:43 → HO.EDOVER 16:46 → HO.S3 16:59
PROVIDERS: Registered Nurse Emergency; Admitting Provider Internal Medicine; Emergency Provider Emergency Medicine; PCP Internal Medicine; Visit Provider Internal Medicine
DX: E11.9 Type 2 diabetes mellitus without complications (principal); R74.01 Elevation of levels of liver transaminase levels; H10.9 Unspecified conjunctivitis; N50.89 Other specified disorders of the male genital organs; L29.1 Pruritus scroti; N48.89 Other specified disorders of penis; H02.846 Edema of left eye, unspecified eyelid
CPT/HCPCS: 0353U; 36415; 72193; 76700; 76870; 80048; 80053; 80076; 81001; 82248; 82947; 83036; 83880; 85025; 85027; 85610; 86704; 86706; 86803; 87040; 87340; 96365; 96366; 96367; 96372; 96375; 96376; 99221; 99285; J1200; J1650; J2543; Q9967

== ENCOUNTER → 2023-01-04 10:01 | Outpatient (BNV) | payer OTHER, SELFPAY | PROVIDERS: Emergency Provider Emergency Medicine; PCP Internal Medicine; Visit Provider Internal Medicine | DX: L29.1 Pruritus scroti (principal); N48.89 Other specified disorders of penis; E11.65 Type 2 diabetes mellitus with hyperglycemia | CPT/HCPCS: 99223; 99239 ==

== ENCOUNTER → 2023-01-04 16:19 | Outpatient (BNV) | payer OTHER, SELFPAY | PROVIDERS: Admitting Provider Internal Medicine; Emergency Provider Emergency Medicine; PCP Internal Medicine; Visit Provider Urology | DX: N50.89 Other specified disorders of the male genital organs (principal); L29.1 Pruritus scroti; N48.89 Other specified disorders of penis | CPT/HCPCS: 99222 ==

== ENCOUNTER 2023-03-23 09:08 | Outpatient (AMB) | payer OTHER, SELFPAY ==
--- NOTE | 2023-03-23 09:47 | AM.OFFWIN_ITS ---
Intake Vital Signs 03/23/23 09:49 Height 5 ft 10 in Weight 194 lb BMI 27.8 BP 140/70 H Blood Pressure Location Lt brachial Position Sitting Pulse 73 Pulse Source Pulse Oximeter Temp 97.1 F Temp Source Temporal Artery Scan Pulse Oximetry (%) 98 Oxygen Delivery Method Room Air Intake Visit Reasons: EST/refill metformin (lobby) Per YL Intake Note: pt is here today for refill metformin Patient Tobacco Use Status: Never used Tobacco Allergies Peanut Butter Allergy (Verified 03/23/23 10:09) Anaphylaxis dog hair Allergy (Unknown, Uncoded 03/23/23 10:09) cant breath Medication List - Last Reconciled 03/23/23 by Hood Haque MD albuterol sulfate 90 mcg/actuation 2 inhalations inhalation QID PRN alcohol swabs 1 pad topical QIDACHS blood sugar diagnostic (FreeStyle Lite Strips) Test four times a day or as directed. blood-glucose meter (FreeStyle Lite Meter kit) As Directed diphenhydramine HCl 25 mg PO TID PRN hydrocortisone 2.5% 1 appl topical BID lancets (FreeStyle Lancets) Test four times a day or as directed. metformin 1,000 mg PO BID moxifloxacin 0.5% 1 drp ophthalmic-Left TID 5 days multivitamin 1 tab PO DAILY pen needle, diabetic Use four times a day or as directed. Do you need a note to return to daycare/school/sports/work: No HPI EST/refill metformin (lobby) Per YL HPI Details 58-year-old male presents to the office for a sick visit. Patient is a diabetic and was diagnosed in December of 2022. He was given a starter dose of metformin at the emergency room and advised to follow-up with his primary care. Patient has an appointment only in March in the requests a refill on the same medications. He brings in his log book in his blood sugars are less than 200 at all times. He is exercising. [facility] Medical History (Updated 01/13/23 @ 00:03 by Baldo Randhawa) Diabetes Prediabetes Asthma Surgical History Hx of knee surgery Hx of colonoscopy Social History Household Members: Spouse Housing: House Do you presently have visiting nurse or other home services: No Alcohol intake: current Alcohol type: beer Patient Tobacco Use Status: Never used Tobacco Advance Directives Date on File: 08/10/20 service: No Current occupational status: employed Current occupation: [employer] - right handed Physical Exam Vital Signs: Last Vital Signs Temp 97.1 F 03/23/23 09:49 Pulse 73 03/23/23 09:49 BP 140/70 H 03/23/23 09:49 Pulse Ox 98 03/23/23 09:49 Oxygen Delivery Method Room Air 03/23/23 09:49 BMI result Body Mass Index 27.8 Const General: cooperative and healthy appearing Nutritional Appearance: well nourished Orientation/consciousness: patient oriented x3 Limitations: no limitations HEENT Head: Yes normal to inspection Eyes General: appearance normal, both eyes and all related structures Neck Neck: Yes normal visual inspection Chest Chest palpation & inspection: normal palpation of entire chest wall Resp Effort & Inspection: normal respiratory effort Neuro General: patient oriented x3 Assessment & Plan Assessment & Plan (1) Diabetes: Code(s): E11.9 - Type 2 diabetes mellitus without complications Plan: Blood work done in the emergency room reviewed. Metformin refilled. Lancets, strips ordered. Medications: Changed From metformin 1,000 mg PO BIDWM 60 tabs 0RF To metformin 1,000 mg PO BID 60 tabs 0RF Coding Level of Care Code Est Pt Level 4 (47412) Diagnoses Diabetes E11.9
[2023-03-23 09:49] VITALS: BP 140/70; PULSE 73; TEMP 36.2; O2SAT 98; BMI 27.8
== END 2023-03-23 10:09 | disposition home or self-care (01) ==
PROVIDERS: PCP Internal Medicine; Visit Provider Internal Medicine
DX: E11.9 Type 2 diabetes mellitus without complications (principal)
CPT/HCPCS: 99214

== ENCOUNTER 2023-04-02 08:49 | Outpatient (AMB) | payer OTHER, SELFPAY ==
--- NOTE | 2023-04-02 08:59 | A.OFFPC_ITS ---
Vital Signs 04/02/23 09:00 Height 5 ft 10 in Weight 199 lb 8 oz BMI 28.6 BP 130/82 Blood Pressure Location Lt brachial Position Sitting Pulse 72 Pulse Source Pulse Oximeter Pulse Oximetry (%) 97 Oxygen Delivery Method Room Air Intake Visit Reasons: Est Care/Recently Diagnosis DM Intake Note: Pt is here to est care and was recently CX with DM was a former Dr Holman pt Allergies Peanut Butter Allergy (Verified 04/02/23 09:17) Anaphylaxis dog hair Allergy (Unknown, Uncoded 04/02/23 09:17) cant breath Medication List - Last Reconciled 04/02/23 by LIZET Gramajo albuterol sulfate 90 mcg/actuation 2 inhalations inhalation QID PRN alcohol swabs 1 pad topical QIDACHS blood sugar diagnostic (FreeStyle Lite Strips) Test four times a day or as directed. blood-glucose meter (FreeStyle Lite Meter kit) As Directed hydrocortisone 2.5% 1 appl topical BID lancets (FreeStyle Lancets) Test four times a day or as directed. metformin 1,000 mg PO BID multivitamin 1 tab PO DAILY pen needle, diabetic Use four times a day or as directed. Tobacco use date assessed: 04/02/23 Dental Screening Dental Screen Date: 04/02/23 Did you have a dental visit in the last 12 months?: Yes Did you have a dental problem in the last 6 months where you did not have access to dental care?: No Was dental information given to patient?: Patient has dentist HPI HPI Comments History of Present Illness Details Patient is a 58-year-old male here to establish care. He was recently diagnosed with type 2 diabetes, was placed on a 1000 mg metformin b.i.d. he has been taking his sugar levels at home which have demonstrated in control blood sugar levels. A1c in office is 8.2. Patient would like to try a bring sugar levels them with diet control. He is due for eye exam, and podiatry visit. Will draw labs today. Patient has no chief complaint appointment today. [facility] Medical History Diabetes Prediabetes Asthma Surgical History Hx of knee surgery Hx of colonoscopy Social History Household Members: Spouse Housing: House Do you presently have visiting nurse or other home services: No Alcohol intake: current Alcohol type: beer Patient Tobacco Use Status: Never used Tobacco e-Cigarette/Vaping Use: Never Used Second Hand Smoke Exposure: No Advance Directives Date on File: 08/10/20 service: No Current occupational status: employed Current occupation: [employer] - right handed Cognitive needs: No Hearing needs: No Vision needs: No Questionnaire PHQ-9 Over the last 2 weeks, how often have you been bothered by any of the following problems? 1. Little interest or pleasure in doing things: not at all 2. Feeling down, depressed, or hopeless: not at all 3. Trouble falling or staying asleep, or sleeping too much: not at all 4. Feeling tired or having little energy: not at all 5. Poor appetite or overeating: not at all 6. Feeling bad about yourself - or that you are a failure or have let yourself or your family down: not at all 7. Trouble concentrating on things, such as reading the newspaper or watching television: not at all 8. Moving or speaking so slowly that other people could have noticed. Or the opposite - being so fidgety or restless that you have been moving around a lot more than usual: not at all 9. Thoughts that you would be better off or of hurting yourself in some wa y: not at all Total score: 0 Depression Screening Interpretation: Negative Depression Screening Done: Yes 86738 - PHQ-9 Billing: Yes Source: Developed by Drs. Gregor Strickland, Soraya Dejesus, Rohith Sierra and colleagues, with an educational ayan from [employer]. Thrive Questionnaire Date Thrive assessed: 04/02/23 I am a: Patient What is your living situation today?: I have a steady place to live Within the past 12 months, did the food you bought not last and you didn't have the money to get more?: Never true Within the past 12 months, did you worry whether your food would run out before you got money to buy more?: Never true Do you have trouble paying for medicines?: No Do you have trouble getting transportation to medical appointments?: No Do you have trouble paying your heating and electricity bill?: No Do you have trouble taking care of your child, family member or friend?: No Do you have trouble with day-to-day activities such as bathing, preparing meals, shopping, managing finances, etc.?: No Are you currently unemployed and looking for a job?: No Are you interested in more education?: Yes Please select the resources that you would like help with: Education AUDIT C Alcohol Use Questionnaire (AUDIT-C) 1. How often do you have a drink containing alcohol?: 2-4 times a month 2. How many drinks containing alcohol do you have on a typical day when you are drinking?: 1 or 2 3. How often do you have six or more drinks on one occasion?: Never Total Score: 2 Score Reviewed/Action Taken: Yes LEANNE-7 AMB Questionnaire LEANNE-7 Date LEANNE - 7 assessed: 04/02/23 Feeling nervous, anxious, or on edge: 0 = Not at all Not being able to stop or control worryin = Not at all Worrying too much about different things: 0 = Not at all Trouble relaxin = Not at all Being so restless that it is hard to sit still: 0 = Not at all Becoming easily annoyed or irritable: 0 = Not at all Feeling afraid as if something awful might happen: 0 = Not at all Total LEANNE-7 score (0-4 normal; 5-9 mild; 10-14 moderate; 15-21 severe): 0 Source: Developed by Drs. Gregor Strickland, Soraya Dejesus, Rohith Sierra and colleagues, with an educational ayan from [employer]. LEANNE-7 Assessment Billing LEANNE-7 Assessment Tool: LEANNE-7 Assessment 14629 Review of Systems Const Details: Constitutional : No Weight loss, No Fever, No Chills, No Fatigue, No Malaise ENT/Mouth : No sore throat, No Rhinorrhea Eyes: No Eye Pain, No Swelling, No Redness Cardiovascular : No Chest Pain, No SOB, No Dyspnea on Exertion, No Orthopnea, No Edema, No Palpitations Respiratory : No Cough, No Sputum, No Wheezing Gastrointestinal : No Nausea, No Vomiting, No Diarrhea, No Constipation, No abdominal Pain, No Hematochezia, No Melena. Ocassional loose stools. Genitourinary : No Dysuria, No Urinary Frequency, No Hematuria, Musculoskeletal : No joint pain, No Myalgias, No Joint Swelling Skin : No Skin Lesions, No rash Neuro : No Weakness, No Numbness, No Dizziness, No Headache Psych : No Anxiety/Panic, No Depression Heme/Lymph: No Bruising, No Bleeding,No Lymphadenopathy Endocrine : No Polyuria, No Polydipsia All other systems reviewed and are negative Physical exam (Primary Care) Vital Signs: Last Vital Signs Pulse 72 04/02/23 09:00 BP 130/82 04/02/23 09:00 Pulse Ox 97 04/02/23 09:00 Oxygen Delivery Method Room Air 04/02/23 09:00 Care Plan Goal for BP management: Patient will be started lisinopril 5 mg for kidney protection for diabetes. Next steps: Patient has been instructed to take blood pressure measurements at home BMI result Body Mass Index 28.6 Tobacco/Smoking Status: Tobacco use Status Tobacco use date assessed 04/02/23 04/02/23 09:06 Patient Tobacco Use Status Never used Tobacco 04/02/23 09:02 e-Cigarette/Vaping Use Never Used 04/02/23 09:06 PHQ-9: PHQ-9 Score PHQ-9: Total score 0 04/02/23 09:21 Depression Screening Interpretation: Negative Thrive Assessment: Date of Thrive Assessment Date Thrive assessed 04/02/23 04/02/23 09:21 Const Other: Appearance: Alert.? Oriented X3.? No acute distress.? Eyes: Pupils equal, round and reactive to light.?Red reflex present. Neck: Normal inspection.? Neck supple.? CVS: Normal heart rate and rhythm.? Pulses normal.? Respiratory: No respiratory distress.? Breath sounds normal.? Skin: Skin warm and dry.? Normal skin color.? Normal skin turgor.? Extremities: No lower extremity edema.? No calf ttp. 5/5 strength to bilateral upper and lower extremities Back: No midline tenderness, no C-spine tenderness, full range of motion, no CVA tenderness bilaterally Neuro: Oriented X 3.? No motor deficit.? No sensory deficit. CN 2-12 intact. Sensate to monofilament. Results AMB Hemoglobin A1c AMB Hemoglobin A1c 8.2 % Last Edit by Faith Pappas CMA on 04/02/23 09: 54 Assessment and Plan Assessment & Plan (1) Diabetes: Comment: Patient will continue taking his metformin. He will continue to take blood sugar measurements at home. Will refer to Podiatry and Ophthalmology. 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 If you were prescribed antibiotics today, it is important that you take your medication to their entirety, do not skip any doses, do not finish them early. Follow-up with your primary care provider this week. Return to the emergency department with new or worsening symptoms. Such as fevers, chills, chest pain, shortness of breath, nausea, vomiting, dizziness, headache, vision changes, lethargy In case of emergency call 911 Plan Follow-up in 3 months for physical exam. Orders: Orders AMB Hemoglobin A1c Today E11.9 - Type 2 diabetes mellitus without complications Comprehensive Met. Panel Today Z91.89 - Other specified personal risk factors, not elsewhere classified Lipid Panel Today E78.5 - Hyperlipidemia, unspecified PSA,Total (Free>4and<10) Today Z12.5 - Encounter for screening for malignant neoplasm of prostate TSH reflex Free T4 Today E03.9 - Hypothyroidism, unspecified Vitamin D 25-OH (D2 and D3) Today Z13.21 - Encounter for screening for nutritional disorder Complete Blood Count Auto Diff Today Z13.0 - Encounter for screening for diseases of the blood and blood-forming organs and certain disorders involving the immune mechanism Microalbumin, Random (w Creat) Today E11.9 - Type 2 diabetes mellitus without complications UA CC w/rflx Micro + Cult Today E86.0 - Dehydration Referrals Ophthalmology Referral E11.9 - Type 2 diabetes mellitus without complications Podiatry Referral E11.9 - Type 2 diabetes mellitus without complications Medications: New lisinopril 5 mg PO DAILY 90 tabs 0RF Refilled albuterol sulfate 90 mcg/actuation 2 inhalations inhalation QID PRN 6.7 grams 1RF shortness of breath or wheezing lancets (FreeStyle Lancets) Test four times a day or as directed. 100 ea 0RF E11.9 - Type 2 diabetes mellitus without complications blood sugar diagnostic (FreeStyle Lite Strips) Test four times a day or as directed. 100 ea 0RF E11.9 - Type 2 diabetes mellitus without complications metformin 1,000 mg PO BID 60 tabs 0RF Coding Level of Care Code Est Pt Level 3 (48204) Diagnoses Type 2 diabetes mellitus without complication, without long-term current use of insulin E11.9 Diabetes mellitus complication status: without complication Diabetes mellitus longshore equipment operator insulin use: without chcf use Diabetes mellitus type: type 2 Additional Codes LEANNE-7 Assessment Billing - LEANNE-7 Assessment Tool: LEANNE-7 Assessment [id number] ([id number]) Time Spent (min) 30
[2023-04-02 09:00] VITALS: BP 130/82; PULSE 72; O2SAT 97; BMI 28.6
== END 2023-04-02 09:49 | disposition home or self-care (01) ==
PROVIDERS: PCP Internal Medicine; Visit Provider Nurse Practitioner Primary Care
DX: E11.9 Type 2 diabetes mellitus without complications (principal)
CPT/HCPCS: 83036; 99214

== ENCOUNTER 2023-04-02 09:51 | Outpatient (REF) | payer OTHER, SELFPAY ==
[2023-04-02 13:32] LABS: MANUAL DIFF FLAG NO
[2023-04-02 13:47] LABS: Basophils Percent Auto 0.5 % (0-2); Eosinophils Absolute Auto 0.2 X10*3/uL (0.0-0.4); Eosinophils Percent Auto 3.3 % (0-4); Hematocrit 43.3 % (42.0-52.0); Hemoglobin 15.2 g/dl (14.0-18.0); Imm Gran Abs Auto 0.02 X10*3/uL (0.00-0.03); Imm Gran Pct Auto 0.3 % (0.0-0.4); Lymphocytes Absolute Auto 2.1 X10*3/uL (1.2-4.9); Lymphocytes Percent Auto 33.5 % (20-40); Mean Corpuscular HGB Conc 35.1 g/dl (31.0-36.0); Mean Corpuscular Hemoglobin 30.2 pg (27.0-33.0); Mean Corpuscular Volume 85.9 fL (80.0-98.0); Mean Platelet Volume 11.1 fL (9.4-12.4); Monocytes Absolute Auto 0.6 X10*3/uL (0.1-1.2); Monocytes Percent Auto 9.3 % (2-11); Neutrophils Absolute Auto 3.4 x10*3/uL (2.0-8.3); Neutrophils Percent Auto 53.1 % (45-73); Platelet Count 224 X10*3/uL (160-400); Red Blood Count 5.04 X10*6/uL (4.60-5.80); Red Cell Distribution Width 12.6 % (11.0-16.0); White Blood Count 6.4 X10*3/uL (4.8-10.8)
[2023-04-02 14:41] LABS: Alanine Aminotransferase 27 U/L (0-40); Albumin Level 4.4 g/dL (3.5-5.0); Alkaline Phosphatase 52 U/L (39-117); Anion Gap 11 (12-20); Aspartate Amino Transferase 17 U/L (5-37); Bilirubin Total 1.1 mg/dL (0.0-1.0); Blood Urea Nitrogen 15 mg/dL (9-16); Calcium 9.8 mg/dL (8.4-10.2); Carbon Dioxide 26 mmol/L (22-29); Chloride 104 mmol/L (96-108); Cholesterol 182 mg/dL (<200); Estimated Glomerular Filt Rate > 60; Glucose Random 181 mg/dL (60-115); HDL Cholesterol 63 mg/dL (>40); LDL Cholesterol Calculated 105 mg/dL (<100); Potassium 4.6 mmol/L (3.3-5.1); Sodium 136 mmol/L (135-145); Total Protein 7.4 g/dL (6.5-8.0); Triglycerides 70 mg/dL (<150)
[2023-04-02 15:10] LABS: TSH reflex Free T4 4.47 uIU/mL (0.32-4.0)
[2023-04-02 16:16] LABS: Free T4 (Free Thyroxine) 1.02 ng/dL (0.71-1.85)
[2023-04-07 15:38] LABS: Vitamin D 25-OH, D2 <4 ng/mL; Vitamin D 25-OH, D3 34 ng/mL; Vitamin D 25-OH, Total 34 ng/mL (30-100)
== END 2023-04-02 09:52 | disposition home or self-care (01) ==
LOC: HO.HMGCLDS 09:51
PROVIDERS: PCP Nurse Practitioner Primary Care; Visit Provider Nurse Practitioner Primary Care
DX: Z12.5 Encounter for screening for malignant neoplasm of prostate (principal); Z13.0 Encounter for screening for diseases of the blood and blood-forming organs and certain disorders involving the immune mechanism; Z13.21 Encounter for screening for nutritional disorder; E78.5 Hyperlipidemia, unspecified; E86.0 Dehydration; E11.9 Type 2 diabetes mellitus without complications; E03.9 Hypothyroidism, unspecified; Z91.89 Other specified personal risk factors, not elsewhere classified
CPT/HCPCS: 36415; 80053; 80061; 81003; 82043; 82306; 82570; 84153; 84439; 84443; 85025

== ENCOUNTER 2023-07-02 08:25 | Outpatient (AMB) | payer OTHER, SELFPAY ==
[2023-07-02 08:30] VITALS: BP 114/78; PULSE 87; O2SAT 98; BMI 28.9
--- NOTE | 2023-07-02 08:30 | MHC.PC.OV ---
Vital Signs 07/02/23 08:30 Height 5 ft 10 in Weight 201 lb 6 oz BMI 28.9 BP 114/78 Blood Pressure Location Lt brachial Position Sitting Pulse 87 Pulse Source Pulse Oximeter Pulse Oximetry (%) 98 Oxygen Delivery Method Room Air Intake Visit Reasons: 3 month fu Intake Note: pt is here for a 3 month follow up for his DM pt has a spot on his back that his wants checked Allergies Peanut Butter Allergy (Verified 07/02/23 08:55) Anaphylaxis dog hair Allergy (Unknown, Uncoded 07/02/23 08:55) cant breath Medication List - Last Reconciled 07/02/23 by Nadeem Lara, LIZET albuterol sulfate 90 mcg/actuation 2 inhalations inhalation QID PRN alcohol swabs 1 pad topical QIDACHS blood sugar diagnostic (FreeStyle Lite Strips) Test four times a day or as directed. blood-glucose meter (FreeStyle Lite Meter kit) As Directed hydrocortisone 2.5% 1 appl topical BID lancets (FreeStyle Lancets) Test four times a day or as directed. lisinopril 5 mg PO DAILY metformin 1,000 mg PO BID multivitamin 1 tab PO DAILY pen needle, diabetic Use four times a day or as directed. Tobacco use date assessed: 07/02/23 Dental Screening Dental Screen Date: 07/02/23 Did you have a dental visit in the last 12 months?: Yes Did you have a dental problem in the last 6 months where you did not have access to dental care?: No Was dental information given to patient?: Patient has dentist HPI HPI Comments History of Present Illness Details Patient is a 58-year-old male in today for his physical exam. Patient has a past medical history significant for diabetes type 2. Patient is currently taking 1000 mg metformin b.i.d. He states that he is having episodes of diarrhea, will change metformin from immediate release to extended release. Patient is in office A1c is 8.2. This is unchanged from his previous visit 3 months prior. Patient will be started on Januvia today. Patient has upcoming appointment with Podiatry, will make appointment with Ophthalmology. He is due for colonoscopy, will refer. Patient has history of melanoma on his right forearm, which she had removed 10 years prior. Patient states he has similar looking mole on his back, will refer to Dermatology [facility] Medical History Diabetes Prediabetes Asthma Surgical History Hx of knee surgery Hx of colonoscopy Family History Mother Mental health disorder Social History Household Members: Spouse Housing: House Do you presently have visiting nurse or other home services: No Alcohol intake: current Alcohol type: beer Patient Tobacco Use Status: Never used Tobacco e-Cigarette/Vaping Use: Never Used Second Hand Smoke Exposure: No Advance Directives Date on File: 08/10/20 service: No Current occupational status: employed Current occupation: [employer] - right handed Cognitive needs: No Hearing needs: No Vision needs: No Questionnaire Thrive Questionnaire Date Thrive assessed: 04/02/23 I am a: Patient What is your living situation today?: I have a steady place to live Within the past 12 months, did the food you bought not last and you didn't have the money to get more?: Never true Within the past 12 months, did you worry whether your food would run out before you got money to buy more?: Never true Do you have trouble paying for medicines?: No Do you have trouble getting transportation to medical appointments?: No Do you have trouble paying your heating and electricity bill?: No Do you have trouble taking care of your child, family member or friend?: No Do you have trouble with day-to-day activities such as bathing, preparing meals, shopping, managing finances, etc.?: No Are you currently unemployed and looking for a job?: No Are you interested in more education?: No Please select the resources that you would like help with: Housing/Skilled Nursing (I am staying in a hotel ) THRIVE Score: 0 LEANNE-7 AMB Questionnaire LEANNE-7 Date LEANNE - 7 assessed: 04/02/23 Source: Developed by Drs. Gregor Strickland, Soraya Dejesus, Rohith Sierra and colleagues, with an educational ayan from [employer] Review of Systems Const All systems reviewed & are unremarkable except as noted in HPI and below Skin/Breast Reports other (Nevi on back) Physical exam (Primary Care) Vital Signs: Last Vital Signs Pulse 87 07/02/23 08:30 BP 114/78 07/02/23 08:30 Pulse Ox 98 07/02/23 08:30 Oxygen Delivery Method Room Air 07/02/23 08:30 Care Plan Goal for BP management: Vital signs reviewed stable BMI result Body Mass Index 28.9 Tobacco/Smoking Status: Tobacco use Status Tobacco use date assessed 07/02/23 07/02/23 08:42 Patient Tobacco Use Status Never used Tobacco 07/02/23 08:30 e-Cigarette/Vaping Use Never Used 07/02/23 08:30 Thrive Assessment: Date of Thrive Assessment Date Thrive assessed 04/02/23 07/02/23 08:30 Const Other: Appearance: Alert.? Oriented X3.? No acute distress.? Head: Normocephalic, atraumatic, no step-offs or deformities Eyes: Pupils equal, round and reactive to light.? ENT: Pharynx normal.? Neck: Normal inspection.? Neck supple.? CVS: Normal heart rate and rhythm.? Pulses normal.? Respiratory: No respiratory distress.? Breath sounds normal.? Abdomen: Soft and nontender.? Skin: Skin warm and dry.? Normal skin color.? Normal skin turgor.? Extremities: No lower extremity edema.? No calf ttp. 5/5 strength to bilateral upper and lower extremities Back: No midline tenderness, no C-spine tenderness, full range of motion, no CVA tenderness bilaterally Neuro: Oriented X 3.? No motor deficit.? No sensory deficit. CN 2-12 intact Results AMB Hemoglobin A1c AMB Hemoglobin A1c 8.2 % Last Edit by Faith Pappas CMA on 07/02/23 08:47 Results Reviewed Results Reviewed: Laboratory Last Values Hgb A1c (Clinic) 8.2 % (4.0-6.0) H 07/02/23 08:43 Assessment and Plan Assessment & Plan (1) Atypical nevi: Comment: Patient has slightly raised atypical nevi on thoracic area back. Patient states this is new, noticed it recently at his vacation. Does have history of melanoma, will refer to Dermatology Code(s): D22.9 - Melanocytic nevi, unspecified (2) Diabetes: Comment: Patient will have metformin changed to 750 mg extended release. Will also start Januvia 25 mg p.o. daily. Patient has been instructed to limit sugars and carbs in diet. Code(s): E11.9 - Type 2 diabetes mellitus without complications Qualifiers: Diabetes mellitus type: type 2 Diabetes mellitus detention insulin use: without detention use Diabetes mellitus complication status: without complication Qualified Code(s): E11.9 - Type 2 diabetes mellitus without complications Plan: Take your medications as prescribed. If you were prescribed antibiotics today, it is important that you take your medication to their entirety, do not skip any doses, do not finish them early. Follow-up with your primary care provider this week. Return to the emergency department with new or worsening symptoms. Such as fevers, chills, chest pain, shortness of breath, nausea, vomiting, dizziness, headache, vision changes, lethargy In case of emergency call 911 Plan Follow-up in 3 months. Orders: Orders AMB Hemoglobin A1c Today E11.9 - Type 2 diabetes mellitus without complications Referrals Dermatology Referral D22.9 - Melanocytic nevi, unspecified Gastroenterology Referral Z12.11 - Encounter for screening for malignant neoplasm of colon Medications: New sitagliptin phosphate (Januvia) 25 mg PO DAILY 90 tabs 0RF metformin ER 750 mg PO BID 180 tabs 0RF Refilled lisinopril 5 mg PO DAILY 90 tabs 0RF Discontinued metformin Discontinued Reason: Doctor's Order 1,000 mg PO BID 180 tabs 1RF Coding Level of Care Code Est Pt Level 4 (39137) Diagnoses Atypical nevi D22.9 Type 2 diabetes mellitus without complication, without long-term current use of insulin E11.9 Diabetes mellitus type: type 2 Diabetes mellitus intermodal customer service insulin use: without intermodal customer service use Diabetes mellitus complication status: without complication Time Spent (min) 38
== END 2023-07-02 09:17 | disposition home or self-care (01) ==
PROVIDERS: PCP Nurse Practitioner Primary Care; Visit Provider Nurse Practitioner Primary Care
DX: E11.9 Type 2 diabetes mellitus without complications (principal)
CPT/HCPCS: 83036; 99214

== ENCOUNTER 2023-10-01 08:19 | Outpatient (AMB) | payer OTHER, SELFPAY ==
[2023-10-01 08:33] VITALS: BP 124/76; PULSE 77; O2SAT 97; BMI 28.1
--- NOTE | 2023-10-01 08:33 | MHC.PC.OV ---
Vital Signs 10/01/23 08:33 Height 5 ft 10 in Weight 196 lb BMI 28.1 BP 124/76 Blood Pressure Location Lt brachial Position Sitting Pulse 77 Pulse Source Pulse Oximeter Pulse Oximetry (%) 97 Oxygen Delivery Method Room Air Intake Visit Reasons: 3M F/U DM Intake Note: pt is here for 3 mo f/u dm Allergies Peanut Butter Allergy (Verified 10/01/23 08:45) Anaphylaxis dog hair Allergy (Unknown, Uncoded 10/01/23 08:45) cant breath Medication List - Last Reconciled 10/01/23 by LIZET Gramajo albuterol sulfate 90 mcg/actuation 2 inhalations inhalation QID PRN alcohol swabs 1 pad topical QIDACHS blood sugar diagnostic (FreeStyle Lite Strips) Test four times a day or as directed. blood-glucose meter (FreeStyle Lite Meter kit) As Directed hydrocortisone 2.5% 1 appl topical BID lancets (FreeStyle Lancets) Test four times a day or as directed. lisinopril 5 mg PO DAILY metformin ER 750 mg PO BID multivitamin 1 tab PO DAILY pen needle, diabetic Use four times a day or as directed. sildenafil 50 mg PO DAILY PRN sitagliptin phosphate (Januvia) 25 mg PO DAILY Tobacco use date assessed: 10/01/23 Dental Screening Dental Screen Date: 07/02/23 HPI HPI Comments History of Present Illness Details Patient is a 58-year-old male in today for 3 month follow-up for diabetes. Patient is declining Prevnar 20 today. Patient is up-to-date with eye exam, needs Podiatry, will refer. He has no symptoms of polyuria polydipsia. Microalbumin is up today. A1c down to 7.0 from 8.2. Patient does have complaint of Erectile dysfunction x6 months. [facility] Medical History (Updated 10/01/23 @ 12:04 by LIZET Gramajo) Diabetes Prediabetes Asthma Surgical History Hx of knee surgery Hx of colonoscopy Family History Mother Mental health disorder Social History Household Members: Spouse Housing: House Do you presently have visiting nurse or other home services: No Alcohol intake: current Alcohol type: beer Patient Tobacco Use Status: Never used Tobacco e-Cigarette/Vaping Use: Never Used Second Hand Smoke Exposure: No Advance Directives Date on File: 08/10/20 service: No Current occupational status: employed Current occupation: [employer] - right handed Cognitive needs: No Hearing needs: No Vision needs: No Questionnaire Thrive Questionnaire Date Thrive assessed: 04/02/23 LEANNE-7 AMB Questionnaire LEANNE-7 Date LEANNE - 7 assessed: 04/02/23 Source: Developed by Drs. Gregor Strickland, Soraya Dejesus, Rohith Sierra and colleagues, with an educational ayan from [employer]. Review of Systems Const All systems reviewed & are unremarkable except as noted in HPI and below Physical exam (Primary Care) Vital Signs: Last Vital Signs Pulse 77 10/01/23 08:33 BP 124/76 10/01/23 08:33 Pulse Ox 97 10/01/23 08:33 Oxygen Delivery Method Room Air 10/01/23 08:33 Care Plan Goal for BP management: blood pressure is controlled. BMI result Body Mass Index 28.1 Tobacco/Smoking Status: Tobacco use Status Tobacco use date assessed 10/01/23 10/01/23 08:37 Patient Tobacco Use Status Never used Tobacco 10/01/23 08:37 e-Cigarette/Vaping Use Never Used 10/01/23 08:37 Thrive Assessment: Date of Thrive Assessment Date Thrive assessed 04/02/23 10/01/23 08:37 Const Other: Appearance: Alert.? Oriented X3.? No acute distress.? Head: Normocephalic, atraumatic, no step-offs or deformities CVS: Normal heart rate and rhythm.? Pulses normal.? Respiratory: No respiratory distress.? Breath sounds normal.? Neuro: Oriented X 3.? No motor deficit.? No sensory deficit. CN 2-12 intact Results AMB Hemoglobin A1c AMB Hemoglobin A1c 7.0 % Last Edit by Juan Luis Saenz CMA on 10/01/23 08:48 Results Reviewed Results Reviewed: Laboratory Last Values Hgb A1c (Clinic) 7.0 % (4.0-6.0) H 10/01/23 08:43 Assessment and Plan Assessment & Plan (1) Diabetes: Comment: patient has been educated to continue with his current treatment plan. Can use 10 you to take medications as prescribed. Continue to work on diet and exercise. Code(s): E11.9 - Type 2 diabetes mellitus without complications Qualifiers: Diabetes mellitus complication status: without complication Diabetes mellitus skilled nursing insulin use: without terminal supervisor use Diabetes mellitus type: type 2 Qualified Code(s): E11.9 - Type 2 diabetes mellitus without complications (2) Erectile dysfunction: Comment: Will prescribe sildenafil 50 mg p.o. p.r.n.. Code(s): N52.9 - Male erectile dysfunction, unspecified Qualifiers: Erectile dysfunction type: unspecified Qualified Code(s): N52.9 - Male erectile dysfunction, unspecified Plan: Redraw labs. Plan Follow-up in 3 months. Orders: Orders AMB Hemoglobin A1c Today E11.9 - Type 2 diabetes mellitus without complications Vitamin D 25-OH (D2 and D3) Today Z13.21 - Encounter for screening for nutritional disorder TSH reflex Free T4 Today Z13.29 - Encounter for screening for other suspected endocrine disorder Complete Blood Count Auto Diff Today Z13.0 - Encounter for screening for diseases of the blood and blood-forming organs and certain disorders involving the immune mechanism UA CC w/rflx Micro + Cult Today Z13.89 - Encounter for screening for other disorder Comprehensive Met. Panel Today Z91.89 - Other specified personal risk factors, not elsewhere classified Referrals Podiatry Referral E11.9 - Type 2 diabetes mellitus without complications Medications: New sildenafil administer 30 minutes to 4 hours before activity 50 mg PO DAILY PRN 14 tabs 0RF sexual activity Coding Level of Care Code Est Pt Level 3 (02993) Diagnoses Type 2 diabetes mellitus without complication, without long-term current use of insulin E11.9 Diabetes mellitus complication status: without complication Diabetes mellitus skilled nursing insulin use: without skilled nursing use Diabetes mellitus type: type 2 Erectile dysfunction, unspecified erectile dysfunction type N52.9 Erectile dysfunction type: unspecified Time Spent (min) 26
== END 2023-10-01 09:09 | disposition home or self-care (01) ==
PROVIDERS: PCP Nurse Practitioner Primary Care; Visit Provider Nurse Practitioner Primary Care
DX: E11.9 Type 2 diabetes mellitus without complications (principal); N52.9 Male erectile dysfunction, unspecified
CPT/HCPCS: 83036; 99213

== ENCOUNTER → 2023-10-16 08:13 | Outpatient (BNVA) | payer OTHER, SELFPAY | PROVIDERS: PCP Nurse Practitioner Primary Care; Visit Provider Nurse Practitioner Family ==

== ENCOUNTER 2024-02-28 13:36 | Outpatient (AMB) | payer OTHER, SELFPAY ==
[2024-02-28 13:38] VITALS: BP 130/80; PULSE 76; O2SAT 98; BMI 29.0
--- NOTE | 2024-02-28 13:38 | MHC.PC.OV ---
Vital Signs 02/28/24 13:38 Height 5 ft 10 in Weight 202 lb BMI 29.0 BP 130/80 Blood Pressure Location Rt brachial Position Sitting Pulse 76 Pulse Source Pulse Oximeter Pulse Oximetry (%) 98 Oxygen Delivery Method Room Air Intake Visit Reasons: transfer from [facility] Intake Note: pt is here for transfer from [facility] Allergies dog dander Allergy (Severe, Verified 02/28/24 13:56) Shortness of Breath Peanut Butter Allergy (Verified 02/28/24 13:56) Anaphylaxis Medication List - Last Reconciled 02/28/24 by Yair Purcell [facility] albuterol sulfate 90 mcg/actuation 2 inhalations inhalation QID PRN alcohol swabs 1 pad topical QIDACHS blood sugar diagnostic (FreeStyle Lite Strips) Test four times a day or as directed. blood-glucose meter (FreeStyle Lite Meter kit) As Directed lancets (FreeStyle Lancets) Test four times a day or as directed. lisinopril 5 mg PO DAILY metformin ER 750 mg PO BID multivitamin 1 tab PO DAILY pen needle, diabetic Use four times a day or as directed. sildenafil 50 mg PO DAILY PRN sitagliptin phosphate (Januvia) 25 mg PO DAILY Tobacco use date assessed: 10/01/23 Dental Screening Dental Screen Date: 07/02/23 HPI transfer from [facility] HPI Details History of Present Illness The patient is a 59-year-old male presenting for a routine physical examination and management of Type 2 Diabetes Mellitus.His last blood sugar check was two weeks prior, with a reported level of 140 mg/dL. Occasionally, his blood glucose reaches 170 mg/dL, depending on dietary intake. Previous significant intake of alcohol was described, but he has since reduced consumption significantly. The patient maintains his fasting blood sugar levels using a specified diet and lifestyle modifications. The patient also mentions mild lower urinary tract symptoms, noting that the urine stream is slower than before. He denies experiencing a weak stream or difficulty initiating urination. Nighttime urination frequency has not increased, and urine has been predominantly clear. He has no history of prostate cancer or related symptoms but is aware of a family history of prostate cancer, although his father ultimately of pancreatic cancer. refused a JIGNA today Review of Systems - Endocrine: Reports fluctuations in blood glucose levels. - Urologic: Denies weak stream, but reports a slower urine flow; denies difficulty starting a stream. - Family History: Reports father with pancreatic cancer and previous prostate cancer. -denies any SI, HI, CP, SOB, N/V, fevers, chills, or neuropathy. Physical Exam General: No apparent distress, well nourished Head: Normocephalic Eyes: Non-icteric, pupils appear grossly symmetric Mouth: Moist mucous membranes, airway patent Neck: Trachea midline cardiac: no murmurs s1 s2 Lungs: clear bilat Neurologic: Alert and cooperative, no dysarthria, face appears symmetric Psychiatric: Affect normal, thought pattern linear Skin: No facial diaphoresis, no gross jaundice, no visible rash on exposed skin feet intact, + sensation with use of monofilament Note: This physical exam was conducted in conjunction with the patient via our Telehealth platform. Plan - Continue current diabetes management with monitoring of blood glucose levels. An appointment for fasting lab work is ordered to assess current diabetic control, including HbA1c and other relevant metabolic parameters. The patient is advised on diet and lifestyle to continue management. - Lower urinary tract symptoms are noted with a discussion of further evaluation if symptoms worsen or become bothersome. - Due to family history, genetic testing consideration for pancreatic CA are recommended for baseline assessment. - An MRI of the abdomen is suggested to assess any pancreatic pathology, given the strong family history of pancreatic cancer ordered Patient was informed and verbally consented to the use of an ambient scribe for clinic note documentation during this visit. Discussion Notes I discussed with the patient the management of Type 2 Diabetes Mellitus, emphasizing the importance of continued lifestyle modification in conjunction with ongoing monitoring of blood glucose levels. We explored options for further evaluation of mild urinary symptoms, although immediate intervention was not deemed necessary. Given the family history, I elaborated on the importance of genetic screening for cancer predisposition and the potential benefit of prostate-specific antigen testing. The implications and procedure for proposed imaging were outlined, and consent was obtained for further evaluation. Patient Instructions - Fast overnight before scheduled lab work, allowing only water and black coffee, to ensure accurate blood test results. - Continue prescribed diabetic management regimen, including dietary measures and lifestyle modifications. - Monitor urinary symptoms, and seek further evaluation if symptoms worsen or new issues arise. - Genetic counseling and testing scheduled; follow up with results and necessary further testing if needed. - Undergo scheduled MRI and PSA testing as discussed. [facility] Medical History (Updated 12/05/24 @ 14:02 by Yair uPrcell [facility]) Diabetes Prediabetes Asthma Surgical History Status post surgical removal of malignant neoplasm of skin (~09/2023) Hx of knee surgery Hx of colonoscopy Family History Mother Mental health disorder Social History Household Members: Spouse Housing: House Do you presently have visiting nurse or other home services: No Alcohol intake: current Alcohol type: beer Patient Tobacco Use Status: Never used Tobacco e-Cigarette/Vaping Use: Never Used Second Hand Smoke Exposure: No Advance Directives Date on File: 08/10/20 service: No Current occupational status: employed Current occupation: [employer] - right handed Cognitive needs: No Hearing needs: No Vision needs: No Questionnaire PHQ-9 Over the last 2 weeks, how often have you been bothered by any of the following problems? 1. Little interest or pleasure in doing things: not at all 2. Feeling down, depressed, or hopeless: not at all 3. Trouble falling or staying asleep, or sleeping too much: not at all 4. Feeling tired or having little energy: not at all 5. Poor appetite or overeating: not at all 6. Feeling bad about yourself - or that you are a failure or have let yourself or your family down: not at all 7. Trouble concentrating on things, such as reading the newspaper or watching television: not at all 8. Moving or speaking so slowly that other people could have noticed. Or the opposite - being so fidgety or restless that you have been moving around a lot more than usual: not at all 9. Thoughts that you would be better off or of hurting yourself in some way: not at all Total score: 0 Depression Screening Interpretation: Negative Depression Screening Done: Yes 31404 - PHQ-9 Billing: Yes Source: Developed by Drs. Gregor Strickland, Soraya Dejesus, Rohith Sierra and colleagues, with an educational ayan from [employer]. Thrive Questionnaire Date Thrive assessed: 02/28/24 I am a: Patient What is your living situation today?: I have a steady place to live Within the past 12 months, did the food you bought not last and you didn't have the money to get more?: Never true Within the past 12 months, did you worry whether your food would run out before you got money to buy more?: Never true Do you have trouble paying for medicines?: No Do you have trouble getting transportation to medical appointments?: No Do you have trouble paying your heating and electricity bill?: No Do you have trouble taking care of your child, family member or friend?: No Do you have trouble with day-to-day activities such as bathing, preparing meals, shopping, managing finances, etc.?: No Are you currently unemployed and looking for a job?: No Are you interested in more education?: Yes Please select the resources that you would like help with: None Currently or been in a relationship where the following occur: No concerns reported THRIVE Score: 0 AUDIT C Alcohol Use Questionnaire (AUDIT-C) 1. How often do you have a drink containing alcohol?: Monthly or less 2. How many drinks containing alcohol do you have on a typical day when you are drinking?: 1 or 2 3. How often do you have six or more drinks on one occasion?: Never Total Score: 1 Score Reviewed/Action Taken: Yes LEANNE-7 AMB Questionnaire LEANNE-7 Date LEANNE - 7 assessed: 02/28/24 Feeling nervous, anxious, or on edge: 0 = Not at all Not being able to stop or control worryin = Not at all Worrying too much about different things: 0 = Not at all Trouble relaxin = Not at all Being so restless that it is hard to sit still: 0 = Not at all Becoming easily annoyed or irritable: 1 = Several days Feeling afraid as if something awful might happen: 0 = Not at all Total LEANNE-7 score (0-4 normal; 5-9 mild; 10-14 moderate; 15-21 severe): 1 Source: Developed by Drs. Gregor Strickland, Soraya Dejesus, Rohith Sierra and colleagues, with an educational ayan from [employer]. LEANNE-7 Assessment Billing LEANNE-7 Assessment Tool: LEANNE-7 Assessment 27834 Physical exam (Primary Care) Vital Signs: Last Vital Signs Pulse 76 02/28/24 13:38 BP 130/80 02/28/24 13:38 Pulse Ox 98 02/28/24 13:38 Oxygen Delivery Method Room Air 02/28/24 13:38 BMI result Body Mass Index 29.0 Tobacco/Smoking Status: Tobacco use Status Tobacco use date assessed 10/01/23 02/28/24 13:41 Patient Tobacco Use Status Never used Tobacco 02/28/24 13:41 e-Cigarette/Vaping Use Never Used 02/28/24 13:41 PHQ-9: PHQ-9 Score PHQ-9: Total score 0 02/28/24 13:48 Depression Screening Interpretation: Negative Thrive Assessment: Date of Thrive Assessment Date Thrive assessed 02/28/24 02/28/24 13:48 Currently or been in a relationship where the following occur: No concerns reported Coding Level of Care Code Est Pt Prev Care 40-64y(47814) Diagnoses Type 2 diabetes mellitus without complication, without long-term current use of insulin E11.9 Diabetes mellitus complication status: without complication Diabetes mellitus roasterman insulin use: without roasterman use Diabetes mellitus type: type 2 Screening for prostate cancer Z12.5 Family history of pancreatic disease Z83.79 Additional Codes LEANNE-7 Assessment Billing - LEANNE-7 Assessment Tool: LEANNE-7 Assessment 33362 ([id number]) PHQ-9 - 15778 - PHQ-9 Billing: Yes ([id number]) Assessment & Plan Assessment & Plan (1) Diabetes: Code(s): E11.9 - Type 2 diabetes mellitus without complications Category: Medical Qualifiers: Diabetes mellitus complication status: without complication Diabetes mellitus fci insulin use: without roasterman use Diabetes mellitus type: type 2 Qualified Code(s): E11.9 - Type 2 diabetes mellitus without complications (2) Screening for prostate cancer: Code(s): Z12.5 - Encounter for screening for malignant neoplasm of prostate Category: Medical (3) Family history of pancreatic disease: Code(s): Z83.79 - Family history of other diseases of the digestive system Category: Medical Plan . Orders: Orders Complete Blood Count Auto Diff Today E11.9 - Type 2 diabetes mellitus without complications TSH reflex Free T4 Today E11.9 - Type 2 diabetes mellitus without complications UA CC w/rflx Micro + Cult Today E11.9 - Type 2 diabetes mellitus without complications Lipid Panel Today E11.9 - Type 2 diabetes mellitus without complications Hemoglobin A1c Today E11.9 - Type 2 diabetes mellitus without complications Prostate Specific Antigen Scr Today Z12.5 - Encounter for screening for malignant neoplasm of prostate Comprehensive [place]. Panel Fast Today E11.9 - Type 2 diabetes mellitus without complications Microalbumin, Random (w Creat) Today E11.9 - Type 2 diabetes mellitus without complications Carbohydrate Antigen 19-9 Today Z83.79 - Family history of other diseases of the digestive system MR abdomen wo/w con Today Z83.79 - Family history of other diseases of the digestive system Referrals Hematology & Oncology Referral Z83.79 - Family history of other diseases of the digestive system
== END 2024-02-28 14:35 | disposition home or self-care (01) ==
PROVIDERS: PCP Nurse Practitioner Family; Visit Provider Nurse Practitioner Family
DX: Z00.00 Encounter for general adult medical examination without abnormal findings (principal); E11.9 Type 2 diabetes mellitus without complications; Z12.5 Encounter for screening for malignant neoplasm of prostate; Z83.79 Family history of other diseases of the digestive system; Z23 Encounter for immunization

== ENCOUNTER → 2024-02-28 13:36 | Outpatient (BNVA) | payer OTHER, SELFPAY | PROVIDERS: PCP Nurse Practitioner Family; Visit Provider Nurse Practitioner Family | DX: Z00.01 Encounter for general adult medical examination with abnormal findings (principal); Z23 Encounter for immunization; R39.198 Other difficulties with micturition; E11.9 Type 2 diabetes mellitus without complications; Z83.79 Family history of other diseases of the digestive system | CPT/HCPCS: 90471; 90677; 96127 ==

== ENCOUNTER 2024-04-18 07:46 | Outpatient (REF) | payer OTHER, SELFPAY ==
[2024-04-18 10:18] LABS: MANUAL DIFF FLAG NO
[2024-04-18 10:23] LABS: Basophils Percent Auto 0.5 % (0-2); Eosinophils Absolute Auto 0.5 X10*3/uL (0.0-0.4); Eosinophils Percent Auto 7.7 % (0-4); Hematocrit 43.7 % (42.0-52.0); Hemoglobin 15.1 g/dl (14.0-18.0); Imm Gran Abs Auto 0.01 X10*3/uL (0.00-0.03); Imm Gran Pct Auto 0.2 % (0.0-0.4); Lymphocytes Absolute Auto 2.4 X10*3/uL (1.2-4.9); Lymphocytes Percent Auto 37.6 % (20-40); Mean Corpuscular HGB Conc 34.6 g/dl (31.0-36.0); Mean Corpuscular Hemoglobin 29.9 pg (27.0-33.0); Mean Corpuscular Volume 86.5 fL (80.0-98.0); Mean Platelet Volume 10.9 fL (9.4-12.4); Monocytes Absolute Auto 0.6 X10*3/uL (0.1-1.2); Monocytes Percent Auto 8.8 % (2-11); Neutrophils Absolute Auto 2.9 x10*3/uL (2.0-8.3); Neutrophils Percent Auto 45.2 % (45-73); Platelet Count 231 X10*3/uL (160-400); Red Blood Count 5.05 X10*6/uL (4.60-5.80); Red Cell Distribution Width 12.8 % (11.0-16.0); White Blood Count 6.4 X10*3/uL (4.8-10.8)
[2024-04-18 10:40] LABS: Appearance Urine Clear; Color Urine Yellow; Glucose Urine UA 500 mg/dL (Negative); Leukocyte Esterase Urine Negative (Negative); Nitrite Urine Negative (Negative); PH 5.5 (5.0-9.0); Specific Gravity - Urine 1.025 (1.005-1.025); Urine Blood Negative (Negative); Urine Ketones Negative (Negative); Urine Protein Negative (Neg-Trace)
[2024-04-18 10:52] LABS: Estimated Average Glucose 200 mg/dL; Hemoglobin A1C 283.4396 umol/L; Hemoglobin A1c % 8.6 % (<6.0); Total Hemoglobin (HGBA1C) 4009.4749 umol/L
[2024-04-18 11:23] LABS: Prostate Specific Antigen Scr 1.28 ng/mL (<0.05-4.0)
[2024-04-18 11:52] LABS: Creatinine Urine 93.23 mg/dL; Microalbum/Creatinine Ratio Ur 10.7 ug/mg cr (<30)
[2024-04-18 13:04] LABS: Alanine Aminotransferase 37 U/L (0-40); Albumin Level 4.3 g/dL (3.5-5.0); Anion Gap 12 (12-20); Aspartate Amino Transferase 33 U/L (5-37); Bilirubin Total 1.2 mg/dL (0.0-1.0); Blood Urea Nitrogen 18 mg/dL (9-16); Calcium 9.2 mg/dL (8.4-10.2); Carbon Dioxide 28 mmol/L (22-29); Chloride 103 mmol/L (96-108); Cholesterol 174 mg/dL (<200); Estimated Glomerular Filt Rate > 60; Glucose Fasting 208 mg/dL (60-99); HDL Cholesterol 57 mg/dL (>40); LDL Cholesterol Calculated 105 mg/dL (<100); Potassium 4.8 mmol/L (3.3-5.1); Sodium 138 mmol/L (135-145); Total Protein 7.5 g/dL (6.5-8.0); Triglycerides 62 mg/dL (<150)
[2024-04-18 13:21] LABS: TSH reflex Free T4 4.43 uIU/mL (0.32-4.0)
[2024-04-18 14:00] LABS: Free T4 (Free Thyroxine) 1.12 ng/dL (0.71-1.85)
[2024-04-18 14:15] LABS: Alkaline Phosphatase 58 U/L (39-117)
[2024-04-21 13:59] LABS: Carbohydrate Antigen 19-9 <3 U/mL (<34)
== END 2024-04-18 07:47 | disposition home or self-care (01) ==
LOC: HO.HMGCLDS 07:46
PROVIDERS: PCP Nurse Practitioner Family; Visit Provider Nurse Practitioner Family
DX: E11.9 Type 2 diabetes mellitus without complications (principal); Z83.79 Family history of other diseases of the digestive system; Z12.5 Encounter for screening for malignant neoplasm of prostate
CPT/HCPCS: 36415; 80053; 80061; 81003; 82043; 82570; 83036; 84153; 84439; 84443; 85025; 86301

== ENCOUNTER 2024-06-10 13:15 | Outpatient (AMB) | payer OTHER, SELFPAY ==
[2024-06-10 13:38] VITALS: BP 114/76; PULSE 102; TEMP 37.1; O2SAT 94; BMI 28.2
--- NOTE | 2024-06-10 13:38 | AM.OFFWIN_ITS ---
Intake Vital Signs 06/10/24 13:38 Height 5 ft 10 in Weight 196 lb 8 oz BMI 28.2 BP 114/76 Blood Pressure Location Lt brachial Position Sitting Pulse 102 H Pulse Source Pulse Oximeter Temp 98.7 F Temp Source Oral Pulse Oximetry (%) 94 Oxygen Delivery Method Room Air Intake Visit Reasons: EP sore throat, coughing, sniffles Intake Note: Pt presents to the office today for c/o sore throat,cough,congestion x1 day. Patient Tobacco Use Status: Never used Tobacco Allergies dog dander Allergy (Severe, Verified 06/10/24 13:40) Shortness of Breath Peanut Butter Allergy (Verified 06/10/24 13:40) Anaphylaxis HPI HPI Comments History of Present Illness Details This is a 59-year-old male with a past medical history of pze-nucriyf-xxcbljaor diabetes, hypertension and asthma presenting for evaluation of a sore throat, cough and sinus congestion that he has had since yesterday. 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 Patient denies having any fevers, chills, chest pain or overt shortness for breath. Patient has not been using his rescue inhaler with an increased frequency. [facility] Medical History (Updated 06/10/24 @ 14:05 by Lydia Johns PA-C) Diabetes Prediabetes Asthma Surgical History Status post surgical removal of malignant neoplasm of skin (~09/2023) Hx of knee surgery Hx of colonoscopy Family History Mother Mental health disorder Social History Household Members: Spouse Housing: House Do you presently have visiting nurse or other home services: No Alcohol intake: current Alcohol type: beer Patient Tobacco Use Status: Never used Tobacco e-Cigarette/Vaping Use: Never Used Second Hand Smoke Exposure: No Advance Directives Date on File: 08/10/20 service: No Current occupational status: employed Current occupation: [employer] - right handed Cognitive needs: No Hearing needs: No Vision needs: No Review of Systems Const All systems reviewed & are unremarkable except as noted in HPI and below Denies chills, Denies fatigue, Denies fever(s) and Denies weakness Eyes Reports as per HPI ENT Denies dizziness, Denies otalgia, Denies hearing loss and Reports sore throat Card Reports no additional complaints, Denies chest pain, Denies dyspnea and Denies dyspnea on exertion Resp Reports cough, Denies dyspnea, Denies dyspnea on exertion and Denies wheezing GI Reports no additional complaints Reports no additional complaints Musc Reports no additional complaints Skin/Breast Reports system reviewed and no additional complaints, except as documented Neuro Reports no additional complaints, Denies dizziness and Denies weakness Psych Reports no additional complaints Endo Reports no additional complaints and Denies fatigue Conrad/Lymph Reports no additional complaints Aller/Immun Reports no additional complaints and Denies wheezing Physical Exam Vital Signs: Last Vital Signs Temp 98.7 F 06/10/24 13:38 Pulse 102 H 06/10/24 13:38 BP 114/76 06/10/24 13:38 Pulse Ox 94 06/10/24 13:38 Oxygen Delivery Method Room Air 06/10/24 13:38 BMI result Body Mass Index 28.2 Repeat pulse 92bpm; patient is afebrile Const General: cooperative, comfortable, no acute distress, well developed, alert and awake Nutritional Appearance: average body habitus Orientation/consciousness: patient oriented x3 Limitations: no limitations HEENT Head: Yes normal to inspection and Yes normocephalic Ears: hearing grossly normal bilaterally, external ears normal, TM normal on the right, left TM abnormal (bulging without erythema) and EAC's normal General nose exam: Normal external nose present Face and sinus: Yes normal facial exam Mouth: Normal oral and palatal mucosa present Throat: Yes posterior oropharynx normal (There is no edema, erythema or exudates of the posterior oropharynx) Eyes General: appearance normal, both eyes and all related structures Neck Lymphatic: no lymphadenopathy noted Resp Effort & Inspection: normal respiratory effort, able to speak in complete sentences, no audible wheezes, Actively coughing and not tachypneic Auscultation: clear to auscultation bilaterally Cardio Rate: regular rate Rhythm: regular rhythm Skin General skin exam: no rashes or lesions noted Neuro General: patient oriented x3 Psych Appearance: grossly normal Mental Status: mental status grossly normal Insight: Good insight present (Psych) Judgement: Good judgement present (Psych) Results AMB Rapid Strep AMB Rapid Strep Negative Last Edit by Aurora Dugan CMA on 06/10/24 13:51 Results Reviewed Results Reviewed: Laboratory Last Values Strep Scn [facility] Negative 06/10/24 13:42 Rapid strep is negative Assessment & Plan Assessment & Plan (1) Pharyngitis: Comment: Rapid strep is negative. Code(s): J02.9 - Acute pharyngitis, unspecified Qualifiers: Pharyngitis/tonsillitis etiology: unspecified etiology Qualified Code(s): J02.9 - Acute pharyngitis, unspecified Plan: Ibuprofen 600 mg q.6 hours p.r.n. pain. (2) Acute upper respiratory infection: Comment: Patient is afebrile and is not tachypneic. Code(s): J06.9 - Acute upper respiratory infection, unspecified Plan: Mucinex OTC daily with increase clear fluids. Patient is instructed to return if he starts to use his albuterol inhaler with increased frequency. Orders: Orders AMB Rapid Strep Screen Today Z13.9 - Encounter for screening, unspecified Coding Level of Care Code Est Pt Level 3 (66423) Diagnoses Pharyngitis, unspecified etiology J02.9 Pharyngitis/tonsillitis etiology: unspecified etiology Acute upper respiratory infection J06.9 Time Spent (min) 20
--- OUTSIDE RECORDS SUMMARY | 2024-06-10 15:35 | XMS_ITS ---
Author Organization [facility] Address [address] [place] [address] Care Team Providers Care Solid Waste Facility Operator Name Role Phone Nadeem Lara Primary Care Provider Nidhi Saul Unavailable [phone] REASON FOR VISIT No Show Encounters Encounter Location Date Provider Diagnosis [address] [address] 07/26/2023 Nidhi Pino Plan Of Treatment Next Appt Details Provider Name:Nidhi Pino , 11/10/2024 08:00:00 AM, [address] [place], [address], Progress Notes * Isaac MATIAS ADOB:1964 (58 yo M)Acc No.[id number]:07/26/2023 Patient:?Isaac Matias :1965???Age:58 Y???Sex:Male Address:[address] [place] [address], [place], [address] * true * Date:? Generated for Printi una/Sarai/eTransmitting on:?06/10/2024 03:35 PM EDT
--- OUTSIDE RECORDS SUMMARY | 2024-06-10 15:36 | XMS_ITS ---
Author Organization [facility] Anatoliy Johnsnoley Address [address] [place] [address] Care Team Providers Care Mail Truck Driver Name Role Phone Nadeem Lara Primary Care Provider Unavailiván e Black, Nidhi Unavailable [phone] Allergies Allergen (clinical drug ingredient) Drug/Non Drug Allergy documented on EMR Reaction Allergy Type Onset Date Status peanut (uncoded) itchy,closing throat Allergy Active Dog dander Dog Dander asthma Allergy Active REASON FOR VISIT At Risk Footcare Medications Medication SIG (Take, Route, Frequency, Duration) Notes Start Date End Date Status metFORMIN HCl Active Januvia Active Lisinopril Active Immunizations Vaccine Route Administration Date Status Comme nts Influenza Unknown 11/12/2023 Refused Social History Tobacco Use: Social History Observation [...] Are you an other tobacco user? No Problems Problem Type SNOMED Code ICD Code Onset Dates Problem Status W/U Status Risk Notes Problem [id number] Hammer toe of right foot (M20.41) Active confirmed Problem 860197870 Hammer toe of left foot (M20.42) Active confirmed Vital Signs Height 5ft 10in in 11/12/2023 Weight 200 lbs 11/12/2023 BMI 28.69 kg/m2 11/12/2023 Blood pressure systolic 175 mm Hg 11/12/19 24 Blood pressure diastolic 80 mm Hg 024 Encounters Encounter Location Date Provider Diagnosis [facility] [place] [address] [place] [address] 11/12/2023 Nidhi Pino Type 2 diabetes mellitus without complication, without long-term current use of insulin E11.9 ; Hammer toe of right foot M20.41 and Hammer toe of left foot M20.42 Assessments Encounter Date Diagnosis (ICD Code) Assessment Notes Treatment Notes Treatment Clinical Notes Section Notes 11/12/2023 Type 2 diabetes mellitus without complication, without long-term current use of insulin (ICD-10 - E11.9) Patient Educated with: DIABETIC FOOT CARE INSTRUCTIONS.p df (DIABETIC FOOT CARE INSTRUCTIONS.p df) 11/12/2023 Hammer toe of right foot (ICD-10 - M20.41) 11/12/2023 Hammer toe of left foot (ICD-10 - M20.42) Plan Of Treatment Treatment Notes Assessment Notes Type 2 diabetes mellitus wit hout complication, without long-term current use of insulin Patient Educated with: DIABETIC FOOT CAR E INSTRUCTIONS.pdf (DIABETIC FOOT CARE INSTRUCTIONS.pdf) Next Appt Details Follow Up: 1 Year, Reason: Provider Name:Nidhi Pino , 11/10/2024 08:00:00 AM, [address] [place] [address], [id number], Progress Notes * Isaac MATIAS ADOB:1964 (59 yo M)Acc No.[id number]:11/12/2023 Progress Notes Patient:?Isaac MATIAS Provider:?Nidhi Pino DPM :1965???Age:58 Y???Sex:Male Denzel e:11/12/2023 Address:[address] [place] [address] Pcp:Nadeem Lara Subjective: * Chief Complaints: * ???At Risk Footcare * HPI: ???At Risk footcare:?Pt States Last PCP Visit:?Date?10/17/2023 * ROS:?General/Constitutional:?Nausea?denies.?Vomiting?denies.?Hunger Thirst?denies.?Loss appetite?denies.?Chills?denies.?Fatigue?denies.?Fever?denies.?Night Sweats?denies.?Unexplained weight loss?denies.?Unexplained weight gain?denies.?HEENTM:?Dentures?denies.?Dizziness?denies.?Glasses/contacts?admits.?Retinopathy?de nies.?Blurred/double vision?denies.?TMJ?denies.?Discharge/drainage?denies.?Implants?denies.?Sore throat?denies.?Dental implants?denies.?Hard of hearing ?denies.?Difficulty chewing/swallowing/speaking?denies.?Nose bleeds?denies.?Sore mouth?denies.?Respiratory:?On Oxygen?denies.?Pneumonia/pleurisy?denies.?Bronchitis?denies.?Emphysema?denies.?C oughing?denies.?Cough blood?denies.?Shortness of breath?denies.?Wheezing?denies.?Cardiovascular:?Pacemaker?denies.?MVP?denies.?WPW?denies.?CHF?denies.?Heart attack?denies.?Septal defect?denies.?Rapid beat?denies.?Chest pain ?denies.?Atrial Fib.?denies.?Murmur/Palpitations?denies.?Gastrointestinal:?Hemorrhoids?denies.?Stomach/Abdominal pain?denies.?Dark blood stool?denies.?Irritable bowel ?denies.?Constipation?denies.?Diarrhea?denies.?Hematology:?Swelling?denies.?Clots?denies.?Varicose Veins?denies.?Bruising?denies.?Bleeding problem?denies.?Genitourinary:?Blood urine?denies.?Frequent/Painfu/urination/bladder control?denies.?Kidney stones?denies.?Infection (UTI)?denies.?Nephropathy?denies.?sex trans dis (STD)?denies.?Prostate?denies.?Musculoskeletal:?Hammertoes?denies.?Bunions?denies.?Back Pain?denies.?Muscle Cramps/ Resting?denies.?Muscle cramps / walking?denies.?Generalized aches and pains?denies.?Weakness?denies.?Integ.:?Mccrary?denies.?Scars?denies.?Corns/calluses?denies.?Ingrown nails?denies.?Painful nails?denies.?Open Sores?denies.?Rashes?denies.?Neurologic:?Difficulty sleeping?denies.?Brain disorder?denies.?Numbness?denies.?Balance trouble?denies.?Confusion?denies.?Fainting/blackouts?denies.?Tingling?denies.?Tr emors?denies.? * Medical History:? * Surgical History:?knee surge ry * Hospitalization/Major Diagno stic Procedure:?Denies Past Hospitalization * Family History:?Mother: gisela overton, diagnosed with Diabetic - NIDDM.?Father: , diagnosed with Diabetic - NIDDM, Other malignant neoplasm of unspecified site.? * Social History:?Tobacco Use:?Tobacco Use/Smoking?Are you a:?nonsmoker ?Additional Findings: Tobacco Non-User?Current non-smoker ?Tobacco use other than smoking?Are you an other tobacco user??No ???Drugs/Alcohol:?Drugs?Have you used drugs other than those for medical reasons in the past 12 months??No ?Alcohol Screen?Did you have a drink containing alcohol in the past year??Yes ?Points?0 ?Interpretation?Negative ???Miscellaneous:?Caffeine: yes, occassionally. ?Children: yes. ?Exercise: yes. ?Marital status: . ?Occupation: self empoyed. * Medications:?TakingLisinopri l Januvia metFORMIN HCl Medication List reviewed and reconciled with the patientTaking Lisinopril Taking Januvia Taking metFORMIN HCl Medication List reviewed and reconciled with the patient * Allergies:?peanut: itchy,sedrick sing throatDog Dander: asthma - Allergyyes[Allergies Verified] Objective: * Vitals:?Ht: 5ft 10in, Wt:200 , BMI:28.69, Shoe size: 10.5-11, BP:175/80mm Hg, BS: not taken, Ht-cm: 177.8 cm, Wt-k.72 kg. * ???Past Orders: ???Lab:HEMOGLOBIN A1C (GLYCO HEMOGLOBIN) (Order Date - 09/24/2023) (Collection Date & Time - 09/24/2023 08:35 AM) ? Value Reference Range ?HEMOGLOBIN A1C (HH) 7.0 * Examination: ???Ophthalmology Referral: ?DIABETES EYE EXAM?Diabetic Retinopathy Screening:?Yes ?Findings of Diabetic Eye Exam:?no retinopathy?General Examination: ?GENERAL APPEARANCE:?Reveals a pleasant, alert, well-nourished, well- developed, well hydrated individual, who demonstrates proper attention to hygiene/body habitus, and is in no acute distress, Pt serves as own?historian for office visit today.?ORIENTED:?person, place, and time.?FOOT EXAM:?Lower Extremity Neurological Exam performed:?Yes ?Visual exam of foot performed:?Yes ?Date?11/12/2023 ?Sensory testing performed:?sensations normal ?Sensory and motor testing performed:?sensations normal ?Pedal pulse taking performed:?2+?Neurological: ?SENSORY:?Neurological exam reveals intact sensorium, pain sensation normal, vibration sensation intact, pinprick sensation is normal in the lower extremities, Pt denies, anesthesia, burning, paresthesia, tingling, B/L.?DEEP TENDON REFLEXES:?Achilles, 2/4, B/L.?Vascular: ?DP PULSES (B):?3/4, B/L.?PT PULSES (B):?3/4, B/L.?CAPILLARY FILL TIME:?immediate, all digits, B/L.?TROPHIC CONDITION-TEXTURE/ELASTICITY/TURGOR/HAIR GROWTH (B):?normal, B/L.?TEMPERTURE GRADIENT (C):?warm to cool, proximal to distal, B/L.?PIGMENTATION:?normal, B/L.?EDEMA (C):?absent, B/L.?Dermatologic: ?SKIN FINDINGS:?Skin exam reveals normal texture, elasticity, and turgor. There are no masses. The interspaces are clear.?Orthopedic: ?MUSCLE STRENGTH:?5/5 all groups in a symmetrical fashion , B/L.?FOOT MORPHOLOGY:?normal , B/L.?DIGITAL DEFORMITIES:?Digital contracture, PIPJ, 2-5 B/L, incompl-reducible with WB, or to push-up test, no over, nor underlapping.?Nails: ?NAILS are:?Elongated, overgrown, dystrophic , T4 , T9.? Assessment: * Assessment: 1.?Hammer toe of right foot - M20.41???2.?Type 2 diabetes mellitus without complication, without long-term current use of insulin - E11.9???3.?Hammer toe of left foot - M20.42??? Plan: * Treatment: * Immunizations:? Influenza (Not administered - Refused: Patient decision) * Procedure Codes:? * Preventive Medicine:? ??Counseling:?Discussion:?-03: Office or other outpatient visit for the evaluation and management of a new patient, which required a medically appropriate history and/or examination and LOW level of DECISION MAKING for: 1 STABLE ACUTE UNCOMPLICATED PROBLEM, 2 OR MORE MINOR PROBLEMS, OR 1 STABLE CHRONIC PROBLEM, THAT POSE(S) A LOW RISK FOR MORBIDITY/MORTALITY. The visit on the day of the encounter encompassed interpreting the data and educating the patient as to the nature of their condition, treatment options available according to their individual PMH, meds, allergies, and overall health/living conditions, as well as any potential risks or complications that may occur from a failure to adhere to, and participate in, the recommended course of therapy. The discussion included a complete verbal, and/or written explanation of the examination results, any x-rays taken, the proposed diagnosis, and outline of the treatment plan. A schedule for future care needs was also explained. The patient verbalized an understanding of the instructions at this time and agreed to be an active participant in their treatment. If the patient should think of any questions or concerns after the visit, I have encouraged the patient to call the office.?BioMech.:?I discussed the Pts foot biomechanics with them and how it relates to their problem, The patient and I reviewed the types of shoes they should be wearing; my recommendation includes obtaining a shoe with a good firm sole, plenty of toe room, and proper arch support.?Podiatric Counseling:?The Pt. was counseled in great detail on their muscoloskeletal foot and toe deformities which coincide with the dermatological presentations visualized on exam. We discussed how their deformities put the integrity of their feet at risk for potential pedal complications which is what makes shoe wear choice important. We discussed the different shoe and insert treatment types and options, as well as the important advantages for adhering to regularly wearing these accomidative devices daily. The patient was made aware of the fact that a failure in accepting these recommedations may be deleterious, unable to prevent, and disadvantagely result in, many pedal complications such as skin irritation, skin ulceration, infection, and even loss of toe/foot/leg/or even their life. Time was also spent with the patient dispensing and discussing proper diabetic footcare techniques including daily skin moisturization, daily foot inspection for any interruption in skin integrity, open lesions, or sign of infection such as redness/malodor/drainage/swelling as well as daily shoe inspection for the presence of internal foreign bodies and shoe as well as insert wear. Patient questions re: shoes, inserts, and self foot inspections were answered to their satisfaction as the patient verbally confirmed a full understanding of the above information..? * Follow Up:?1 Year * Images: * Sign off status: Completed true * Provider:?Nidhi Pino DPM Date:?2023 Generated for Masood heart/Sarai/Conor on:?06/10/2024 03:36 PM EDT History and Physical Notes * HPI (History of Present Illness) Category Sub-Category Detail Notes Category Not es At Risk footcare Pt States Last PCP Visit: Date: 4 Examination Category Sub-Category Detail Notes Category Not es Neurological SENSORY: Neurological exa m reveals intact sensorium, pain sensation normal, vibration sensation intact, pinprick sensation is normal in the lower extremities, Pt denies, anesthesia, burning, paresthesia, tingling, B/L DEEP TENDON REFLEXES: Achilles, 2/4, B/L Dermatologic SKIN FINDINGS: Skin exam reveal s normal texture, elasticity, and turgor. There are no masses. The interspaces are clear Orthopedic FOOT MORPHOLOGY: normal , B/L DIGITAL DEFORMITIES: Digital contracture , PIPJ, 2-5 B/L, incompl-reducible with WB, or to push-up test, no over, nor underlapping MUSCLE STRENGTH: 5/5 all groups in a symmetrical fashion , B/L General Examination GENERAL APPEARANCE: Reveals a pleasant, alert, well- nourished, well-developed, well hydrated individual, who demonstrates proper attention to hygiene/body habitus, and is in no acute distress, Pt serves as own historian for office visit today FOOT EXAM: Lower Extremity Neurological Exa m performed:: Yes Visual exam of foot performed:: Yes Date: 11/12/2023 Sensory testing performed:: sensations n ormal Sensory and motor testing performed:: se nsations normal Pedal pulse taking performed:: 2+ ORIENTED: person, place, and t rosales Ophthalmology Referral DIABETES EYE EXAM Diabetic Retinopa thy Screening:: Yes Findings of Diabetic Eye Exam:: no retin opathy Vascular DP PULSES (B): 3/4, B/L PT PULSES (B): 3/4, B/L CAPILLARY FILL TIME: immediate, all digi ts, B/L TEMPERTURE GRADIENT (C): warm to cool, p roximal to distal, B/L TROPHIC CONDITION-TEXTURE/ELASTICITY/TURGOR/HAIR GROWTH (B): normal, B/L EDEMA (C): absent, B/L PIGMENTATION: normal, B/L Nails NAILS are: Elongated, overgrown, dystro phic , T4 , T9
--- OUTSIDE RECORDS SUMMARY | 2024-06-10 15:36 | XMS_ITS | Patient Health Record ---
Author Organization [facility] Anatoliy orozco [facility] Address [address] [place] [address] Care Team Providers Care Hydro Station Operator Name Role Phone Nadeem Lara Primary Care Provider Nidhi Saul Unavailable [phone] Allergies Allergen (clinical drug ingredient) Drug/Non Drug Allergy documented on EMR Reaction Allergy Type Onset Date Status peanut (uncoded) itchy,closing throat Allergy Active Dog dander Dog Dander asthma Allergy Active Results Component Value Reference Range Notes HEMOGLOBIN A1C (GLYCOHEMOGLO BIN) Reviewed date:11/12/2023 08:36:24 AM Interpretation: Performing Lab: Notes/Report: HEMOGLOBIN A1C (HH) 7.0 Reason For Referral Diagnosis 1 Type 2 diabetes edgar itus without complication, without long-term current use of insulin (E11.9) Referring Provider First Name Ioana Elam Referring Provider Last Name Henrry Referring Provider Speciality Internal M edicine Referred Organization [facility] Jorge Referred Provider Nidhi Pino Referred Address [address] [place], [place],[address], Referred Provider Specialty Podiatry Referral Priority Routine Medications Medication SIG (Take, Route, Frequency, Duration) [...] Problem Status W/U Status Risk Notes Problem 522249564 Hammer toe of right foot (M20.41) Active confirmed Problem 163792075 Hammer toe of left foot (M20.42) Active confirmed Problem 629228959 Type 2 diabetes mellitus without complication, without long-term current use of insulin (E11.9) Active confirmed Vital Signs Blood pressure diastolic 80 mm Hg 11/12/2023 Height 5ft 10in in 11/12/2023 Blood pressure systolic 175 mm Hg 11/12/2023 Weight 200 lbs 11/12/2023 BMI 28.69 kg/m2 11/12/2023 Encounters Encounter Location Date Provider Diagnosis [facility] [address] 11/12/2023 Nidhi Pino Type 2 diabetes mellitus without complication, without long-term current use of insulin E11.9 ; Hammer toe of right foot M20.41 and Hammer toe of left foot M20.42 [facility] [address] [place] [address] 07/26/2023 Nidhi Pino Assessments Encounter Date Diagnosis (ICD Code) Assessment Notes Treatment Notes Treatment Clinical Notes Section Notes 11/12/2023 Hammer toe of right foot (ICD-10 - M20.41) 11/12/2023 Type 2 diabetes mellitus without complication, without long-term current use of insulin (ICD-10 - E11.9) Patient Educated with: DIABETIC FOOT CARE INSTRUCTIONS.p df (DIABETIC FOOT CARE INSTRUCTIONS.p df) 11/12/2023 Hammer toe of left foot (ICD-10 - M20.42) Plan Of Treatment Next Appt Details Provider Name:Nidhi Pino , 11/10/2024 08:00:00 AM, [address] [place] [address], [address], Insurance Providers Payer Name Payer Address Payer Phone Subscriber Number Group Number Insured Name Patient Relationship to Insured Coverage Start Date Coverage End Date [place] [address] [place] [phone] [phone] [id number] August Spouse - patient is the spouse of the insured Medical (General) History Medical History History ICD Code asthma Cancer covid-19 Diabetic Chicken pox Surgical History Surgery Date(Month/Year) knee surgery
--- OUTSIDE RECORDS SUMMARY | 2024-06-10 15:36 | XMS_ITS ---
Author Organization [facility] Address [address] [place] [address] Care Team Providers Care Drill Press Tender Name Role Phone Nadeem Lara Primary Care Provider Nidhi Saul Unavailable [phone] Allergies Allergen (clinical drug ingredient) Drug/Non Drug [...] 07/26/2023 Encounters Encounter Location Date Provider Diagnosis [facility] [address] [place] [address] 07/26/2023 Nidhi Pino Plan Of Treatment Next Appt Details Provider Name:Nidhi Pino , 11/10/2024 08:00:00 AM, [address] [place], [address], Progress Notes * Isaac MATIAS ADOB:1964 (59 yo M)Acc No.[id number]:07/26/2023 Progress Notes Patient:?Isaac MATIAS Provider:?Nidhi Pino DPM :1965???Age:58 Y???Sex:Male Denzel e:07/26/2023 Address:[address] [place], [place] [id number] Pcp:Nadeem Lara Subjective: * Chief Complaints: * ??? * Medical History:?Asthma, Can cer, Covid-19, Diabetic, Chicken pox. * Family History:?Mother: gisela overton, diagnosed with Diabetic - NIDDM.?Father: , diagnosed with Other malignant neoplasm of unspecified site, Diabetic - NIDDM.? * Social History:?Tobacco Use:?Tobacco Use/Smoking?Are you a:?nonsmoker ?Additional Findings: Tobacco Non-User?Current non-smoker ?Tobacco use other than smoking?Are you an other tobacco user??No ???Drugs/Alcohol:?Drugs?Have you used drugs other than those for medical reasons in the past 12 months??No ?Alcohol Screen?Did you have a drink containing alcohol in the past year??Yes ?Points?0 ?Interpretation?Negative ???Miscellaneous:?Caffeine: yes. ?Marital status: . ?Occupation: self empoyed. * Medications:?Taking metFORMI N HCl * Allergies:?Peanut, Dog Hair. Objective: * Vitals:?Ht: 6 ft 10 in, Wt:1 95, BMI:20.39, Shoe size: 10.5-11, Ht-cm: 208.28 cm, Wt-k.45 kg. Assessment: Plan: * Treatment: * Images: * The named appointment provid er may or may not be the originator of this progress note, and it is not deemed complete until electronically signed by the appointment provider. Sign off status: Pending * Provider:Catia Pino DPM Date:?2023 Generated for Masood heart/Sarai/Conor on:?06/10/2024 03:35 PM EDT
== END 2024-06-10 14:03 | disposition home or self-care (01) ==
PROVIDERS: PCP Nurse Practitioner Family; Visit Provider Physician Assistant
DX: J02.9 Acute pharyngitis, unspecified (principal); J06.9 Acute upper respiratory infection, unspecified; Z13.9 Encounter for screening, unspecified

== ENCOUNTER → 2024-06-10 13:15 | Outpatient (BNVA) | payer OTHER, SELFPAY | PROVIDERS: PCP Nurse Practitioner Family; Visit Provider Physician Assistant | DX: J02.9 Acute pharyngitis, unspecified (principal); J06.9 Acute upper respiratory infection, unspecified; E11.9 Type 2 diabetes mellitus without complications; I10 Essential (primary) hypertension; J45.909 Unspecified asthma, uncomplicated | CPT/HCPCS: 87880 ==

== ENCOUNTER 2024-09-02 09:18 | Outpatient (REF) | payer OTHER, SELFPAY ==
--- OUTSIDE RECORDS SUMMARY | 2024-09-02 10:08 | XMS_ITS ---
Author Organization [facility] Address [address] [place] [address] Care Team Providers Care Stave Machine Tender Name Role Phone Nadeem Lara Primary Care Provider Nidhi Saul Unavailable [phone] Allergies Allergen (clinical drug ingredient) Drug/Non Drug [...] 07/26/2023 Encounters Encounter Location Date Provider Diagnosis [facility] [address] [place] [address] 07/26/2023 Nidhi Pino Plan Of Treatment Next Appt Details Provider Name:Nidhi Pino , 11/10/2024 08:00:00 AM, [address] [place], [address], Progress Notes * Isaac MATIAS ADOB:1964 (59 yo M)Acc No.[id number]:07/26/2023 Progress Notes Patient:?Isaac MATIAS Provider:?Nidhi Pino DPM :1965???Age:58 Y???Sex:Male Denzel e:07/26/2023 Address:[address] [place], [place] [id number] Pcp:Nadeem Lara Subjective: * Chief Complaints: * [...] Pino DPM Date:?2023 Generated for Masood heart/Sarai/Conor on:?09/02/2024 10:08 AM EDT
[2024-09-02 10:57] LABS: Alanine Aminotransferase 33 U/L (0-40); Albumin Level 4.7 g/dL (3.5-5.0); Alkaline Phosphatase 62 U/L (39-117); Anion Gap 15 (12-20); Aspartate Amino Transferase 24 U/L (5-37); Bilirubin Total 1.7 mg/dL (0.0-1.0); Blood Urea Nitrogen 19 mg/dL (9-16); Calcium 9.7 mg/dL (8.4-10.2); Carbon Dioxide 27 mmol/L (22-29); Chloride 101 mmol/L (96-108); Estimated Glomerular Filt Rate > 60; Glucose Random 181 mg/dL (60-115); Potassium 4.5 mmol/L (3.3-5.1); Sodium 138 mmol/L (135-145); Total Protein 7.3 g/dL (6.5-8.0)
[2024-09-02 11:12] LABS: TSH reflex Free T4 4.93 uIU/mL (0.32-4.0)
[2024-09-02 12:12] LABS: Free T4 (Free Thyroxine) 1.08 ng/dL (0.71-1.85)
[2024-09-03 18:09] LABS: Thyroid Peroxidase Antibodies <1 IU/mL (<9)
== END 2024-09-02 09:19 | disposition home or self-care (01) ==
LOC: HO.HMGCLDS 09:18
PROVIDERS: PCP Nurse Practitioner Family; Visit Provider Nurse Practitioner Family
DX: E11.9 Type 2 diabetes mellitus without complications (principal); R01.1 Cardiac murmur, unspecified; R94.6 Abnormal results of thyroid function studies; Z79.84 Long term (current) use of oral hypoglycemic drugs
CPT/HCPCS: 36415; 80053; 83036; 84439; 84443; 86376; 96127

== ENCOUNTER 2024-09-02 09:46 | Outpatient (AMB) | payer OTHER, SELFPAY ==
--- NOTE | 2024-09-02 09:48 | MHC.PC.OV ---
Vital Signs 09/02/24 09:50 Height 5 ft 10 in Weight 200 lb BMI 28.7 BP 118/74 Blood Pressure Location Lt brachial Position Sitting Pulse 83 Pulse Source Pulse Oximeter Pulse Oximetry (%) 98 Oxygen Delivery Method Room Air Intake Visit Reasons: 6 months f/up ~ update PCP Visual Communications Instructor Required: No Accompanied by: Self / Same As Patient Allergies dog dander Allergy (Severe, Verified 09/02/24 10:27) Shortness of Breath Peanut Butter Allergy (Verified 09/02/24 10:27) Anaphylaxis Medication List - Last Reconciled 09/02/24 by LIZET Magallanes- albuterol sulfate 90 mcg/actuation 2 inhalations inhalation QID PRN alcohol swabs 1 pad topical QIDACHS blood sugar diagnostic (FreeStyle Lite Strips) Test four times a day or as directed. blood-glucose meter (FreeStyle Lite Meter kit) As Directed empagliflozin (Jardiance) 10 mg PO DAILY 30 days lancets (FreeStyle Lancets) Test four times a day or as directed. lisinopril 5 mg PO DAILY metformin ER 750 mg PO BID multivitamin 1 tab PO DAILY pen needle, diabetic Use four times a day or as directed. sildenafil 50 mg PO DAILY PRN Tobacco use date assessed: 09/02/24 Dental Screening Dental Screen Date: 09/02/24 Did you have a dental visit in the last 12 months?: Yes Did you have a dental problem in the last 6 months where you did not have access to dental care?: No Was dental information given to patient?: Patient has dentist HPI 6 months f/up ~ update PCP HPI Details Patient is here for follow-up for diabetes. His most recent A1c was today and I was 8.0. He reports that they get his metformin twice a day, but rather once a day. I encouraged he starts taking it twice a day on a regular basis. He is also on Jardiance 10 mg, my plan is to increase to 25 mg. He denies any polyuria, polydipsia, neuropathy. He still has ongoing ED with zolpidem refill up to 50 mg. I plan to increase this up to 100 and try this dose. Further denies any shortness of breath, chest pain, fevers, chills. [facility] Medical History Diabetes Prediabetes Asthma Surgical History Status post surgical removal of malignant neoplasm of skin (~09/2023) Hx of knee surgery Hx of colonoscopy Family History Mother Mental health disorder Social History Household Members: Spouse Housing: House Do you presently have visiting nurse or other home services: No Alcohol intake: current Alcohol type: beer Patient Tobacco Use Status: Never used Tobacco e-Cigarette/Vaping Use: Never Used Second Hand Smoke Exposure: No Advance Directives Date on File: 08/10/20 service: No Current occupational status: employed Current occupation: [employer] - right handed Cognitive needs: No Hearing needs: No Vision needs: No Questionnaire PHQ-9 Over the last 2 weeks, how often have you been bothered by any of the following problems? 1. Little interest or pleasure in doing things: not at all 2. Feeling down, depressed, or hopeless: not at all 3. Trouble falling or staying asleep, or sleeping too much: not at all 4. Feeling tired or having little energy: not at all 5. Poor appetite or overeating: not at all 6. Feeling bad about yourself - or that you are a failure or have let yourself or your family down: not at all 7. Trouble concentrating on things, such as reading the newspaper or watching television: not at all 8. Moving or speaking so slowly that other people could have noticed. Or the opposite - being so fidgety or restless that you have been moving around a lot more than usual: not at all 9. Thoughts that you would be better off or of hurting yourself in some way: not at all Total score: 0 Depression Screening Interpretation: Negative Depression Screening Done: Yes 63489 - PHQ-9 Billing: Yes Source: Developed by Drs. Gregor Strickland, Soraya Dejesus, Rohith Sierra and colleagues, with an educational ayan from [employer]. Thrive Questionnaire Date Thrive assessed: 09/02/24 I am a: Patient What is your living situation today?: I have a steady place to live Within the past 12 months, did the food you bought not last and you didn't have the money to get more?: Never true Within the past 12 months, did you worry whether your food would run out before you got money to buy more?: Never true Do you have trouble paying for medicines?: No Do you have trouble getting transportation to medical appointments?: No Do you have trouble paying your heating and electricity bill?: No Do you have trouble taking care of your child, family member or friend?: No Do you have trouble with day-to-day activities such as bathing, preparing meals, shopping, managing finances, etc.?: No Are you currently unemployed and looking for a job?: No Are you interested in more education?: No Please select the resources that you would like help with: None Currently or been in a relationship where the following occur: No concerns reported THRIVE Score: 0 AUDIT C Alcohol Use Questionnaire (AUDIT-C) 1. How often do you have a drink containing alcohol?: Monthly or less 2. How many drinks containing alcohol do you have on a typical day when you are drinking?: 1 or 2 3. How often do you have six or more drinks on one occasion?: Never Total Score: 1 Score Reviewed/Action Taken: Yes LEANNE-7 AMB Questionnaire LEANNE-7 Date LEANNE - 7 assessed: 09/02/24 Feeling nervous, anxious, or on edge: 0 = Not at all Not being able to stop or control worryin = Not at all Worrying too much about different things: 0 = Not at all Trouble relaxin = Not at all Being so restless that it is hard to sit still: 0 = Not at all Becoming easily annoyed or irritable: 0 = Not at all Feeling afraid as if something awful might happen: 0 = Not at all Total LEANNE-7 score (0-4 normal; 5-9 mild; 10-14 moderate; 15-21 severe): 0 Source: Developed by Drs. Gregor Strickland, Soraya Dejesus, Rohith Sierra and colleagues, with an educational ayan from [employer]. LEANNE-7 Assessment Billing LEANNE-7 Assessment Tool: LEANNE-7 Assessment 57740 Physical exam (Primary Care) Vital Signs: Last Vital Signs Pulse 83 09/02/24 09:50 BP 118/74 09/02/24 09:50 Pulse Ox 98 09/02/24 09:50 Oxygen Delivery Method Room Air 09/02/24 09:50 BMI result Body Mass Index 28.7 Tobacco/Smoking Status: Tobacco use Status Tobacco use date assessed 09/02/24 09/02/24 09:54 Patient Tobacco Use Status Never used Tobacco 09/02/24 09:50 e-Cigarette/Vaping Use Never Used 09/02/24 09:50 PHQ-9: PHQ-9 Score PHQ-9: Total score 0 09/02/24 09:54 Depression Screening Interpretation: Negative Thrive Assessment: Date of Thrive Assessment Date Thrive assessed 09/02/24 09/02/24 09:54 Currently or been in a relationship where the following occur: No concerns reported Results AMB Hemoglobin A1c AMB Hemoglobin A1c 8.0 % Last Edit by Unruly Foley CMA on 09/02/24 10:13 Results Reviewed Results Reviewed: Laboratory Last Values Hgb A1c (Clinic) 8.0 % (4.0-6.0) H 09/02/24 10:10 Coding Level of Care Code Est Pt Level 3 (76499) Diagnoses Type 2 diabetes mellitus without complication, without long-term current use of insulin E11.9 Diabetes mellitus type: type 2 Diabetes mellitus half-way insulin use: without tank terminal gauger use Diabetes mellitus complication status: without complication Systolic murmur R01.1 Additional Codes LEANNE-7 Assessment Billing - LEANNE-7 Assessment Tool: LEANNE-7 Assessment 47261 ([id number]) PHQ-9 - 57937 - PHQ-9 Billing: Yes ([id number]) Assessment & Plan Assessment & Plan (1) Diabetes: Code(s): E11.9 - Type 2 diabetes mellitus without complications Category: Medical Qualifiers: Diabetes mellitus type: type 2 Diabetes mellitus half-way insulin use: without half-way use Diabetes mellitus complication status: without complication Qualified Code(s): E11.9 - Type 2 diabetes mellitus without complications Plan: Encourage patient to take his metformin twice a day rather than once a day as prescribed. We will increase his Jardiance from 10 mg to 25 mg once a day. Encouraged him to work on his diet which he is well aware of. Eye exam is up-to-date. He reports going for labs today, I can not tell which labs were drawn today, though may add more depending on what is resulted. We will follow up with him in approximately 4 months. (2) Systolic murmur: Code(s): R01.1 - Cardiac murmur, unspecified Category: Medical Plan: echo ordered Orders: Orders AMB Hemoglobin A1c Today Z13.9 - Encounter for screening, unspecified CA echo transthoracic complete Today R01.1 - Cardiac murmur, unspecified Medications: Changed From empagliflozin (Jardiance) 10 mg PO DAILY 30 days 30 tabs 3RF To empagliflozin 25 mg PO DAILY 30 days 30 tabs 3RF From sildenafil administer 30 minutes to 4 hours before activity 50 mg PO DAILY PRN 14 tabs 6RF sexual activity To sildenafil administer 30 minutes to 4 hours before activity 100 mg PO DAILY PRN 20 tabs 6RF sexual activity Refilled metformin ER 750 mg PO BID 180 tabs 1RF
[2024-09-02 09:50] VITALS: BP 118/74; PULSE 83; O2SAT 98; BMI 28.7
== END 2024-09-02 10:39 | disposition home or self-care (01) ==
LOC: HO.HMCC 09:47
PROVIDERS: PCP Nurse Practitioner Family; Visit Provider Nurse Practitioner Family
DX: E11.9 Type 2 diabetes mellitus without complications (principal); R01.1 Cardiac murmur, unspecified; Z13.9 Encounter for screening, unspecified

== ENCOUNTER 2024-09-04 14:58 | Outpatient (REF) | payer OTHER, SELFPAY ==
[2024-09-04 16:19] LABS: Retic HGB Equivalent 34.3 pg (30.0-35.0); Reticulocyte Percent 1.4 % (0.5-1.8); Reticulocytes Absolute 0.074 X10*6/uL (0.026-0.095)
[2024-09-04 16:33] LABS: Haptoglobin 66 mg/dL (40-268)
[2024-09-04 16:33] LABS: Alanine Aminotransferase 34 U/L (0-40); Albumin Level 4.7 g/dL (3.5-5.0); Alkaline Phosphatase 62 U/L (39-117); Anion Gap 14 (12-20); Aspartate Amino Transferase 26 U/L (5-37); Bilirubin Direct 0.4 mg/dL (0.0-0.5); Bilirubin Total 1.3 mg/dL (0.0-1.0); Blood Urea Nitrogen 22 mg/dL (9-16); Calcium 10.5 mg/dL (8.4-10.2); Carbon Dioxide 27 mmol/L (22-29); Chloride 101 mmol/L (96-108); Estimated Glomerular Filt Rate > 60; Glucose Random 215 mg/dL (60-115); Potassium 4.2 mmol/L (3.3-5.1); Sodium 138 mmol/L (135-145); Total Protein 7.1 g/dL (6.5-8.0)
[2024-09-04 16:46] LABS: Lactate Dehydrogenase 260 U/L (118-273)
--- OUTSIDE RECORDS SUMMARY | 2024-09-04 17:38 | XMS_ITS ---
Author Organization [facility] Address [address] [place] [address] Care Team Providers Care Tour Actor Name Role Phone Nadeem Lara Primary Care Provider Nidhi Saul Unavailable [phone] Allergies Allergen (clinical drug ingredient) Drug/Non Drug [...] 07/26/2023 Encounters Encounter Location Date Provider Diagnosis [facility] [address] [place] [address] 07/26/2023 Nidhi Pino Plan Of Treatment Next Appt Details Provider Name:Nidhi Pino , 11/10/2024 08:00:00 AM, [address] [place], [address], Progress Notes * Isaac MATIAS ADOB:1964 (59 yo M)Acc No.[id number]:07/26/2023 Progress Notes Patient:?Isaac MATIAS Provider:?Nidhi Pino DPM :1965???Age:58 Y???Sex:Male Denzel e:07/26/2023 Address:[address] [place], [place] [phone] Pcp:Nadeem Lara Subjective: * Chief Complaints: * [...] Pino DPM Date:?2023 Generated for Masood heart/Sarai/Conor on:?09/04/2024 05:38 PM EDT
== END 2024-09-04 14:59 | disposition home or self-care (01) ==
LOC: HO.HMGCLDS 14:58
PROVIDERS: PCP Nurse Practitioner Family; Visit Provider Nurse Practitioner Family
DX: R17 Unspecified jaundice (principal)
CPT/HCPCS: 36415; 80053; 82248; 83010; 83615; 85045

== ENCOUNTER 2024-12-10 08:07 | Outpatient (REF) | payer OTHER, SELFPAY ==
--- OUTSIDE RECORDS SUMMARY | 2023-07-26 07:30 | XMS_ITS ---
Author Organization [facility] Address [address] [place] [address] Care Team Providers Care Contract Law Specialist Name Role Phone Nadeem Lara Primary Care Provider Nidhi Saul Unavailable [phone] Allergies Allergen (clinical drug ingredient) Drug/Non Drug Allergy documented on EMR Reaction Allergy Type Onset Date Status Dog dander dog hair (uncoded) Unknown Allergy Active peanut (uncoded) Unknown Allergy Act lucio Medications Medication SIG (Take, Route, Frequency, Duration) Notes Start Date End Date Status metFORMIN HCl Active Social History Tobacco Use: Social History Observation Description Date Details (start date - stop date) Never Smoker NA - NA Tobacco Use/Smoking Question Answer Notes Are you a: nonsmoker Additional Findings: Tobacco Non-User Current no n-smoker Alcohol Screen Question Answer Notes Did you have a drink containing alcohol in the p ast year? Yes Points 0 Interpretation Negative Tobacco use other than smoking: Question Answer Notes Are you an other tobacco user? No Vital Signs Height 6 ft 10 in in 07/26/2023 Weight 195 lbs 07/26/2023 BMI 20.39 kg/m2 07/26/2023 Encounters Encounter Location Date Provider Diagnosis [facility] [address] [place] [address] 07/26/2023 Nidhi Pino Plan Of Treatment Next Appt Details Provider Name:Nidhi Pino , 12/11/2024 02:15:00 PM, [address] [place], [address], Progress Notes * Isaac MATIAS ADOB:1964 (59 yo M)Acc No.[id number]:07/26/2023 Progress Notes Patient: Isaac PAGAN Provider: Rita Pino DPM :1965 A ge:58 Y S ex:Male Date:07/26/2023 Address:[address] [place], [place] [id number] Pcp:Nadeem Lara Subjective: * Chief Complaints: * * Medical History: A sthma, Cancer, Covid-19, Diabetic, Chicken pox. * Family History: M other: alive, diagnosed with Diabetic - NIDDM. F ather: , diagnosed with Other malignant neoplasm of unspecified site, Diabetic - NIDDM. * Social History: T obacco Use: T obacco Use/Smoking A re you a: n onsmoker A dditional Findings: Tobacco Non-User C urrent non-smoker Tobacco use other than smoking A re you an other tobacco user? N o D rugs/Alcohol: D rugs H ave you used drugs other than those for medical reasons in the past 12 months? N o Alcohol Screen D id you have a drink containing alcohol in the past year? Y es P oints 0 I nterpretation N egative M iscellaneous: C affeine: yes. Marital status: . Occupation: self empoyed. * Medications: T aking metFORMIN HCl * Allergies: P eanut, Dog Hair. Objective: * Vitals: H t: 6 ft 10 in, Wt:195, BMI:20.39, Shoe size: 10.5-11, Ht-cm: 208.28 cm, Wt-k.45 kg. Assessment: Plan: * Treatment: * Images: * The named appointment provid er may or may not be the originator of this progress note, and it is not deemed complete until electronically signed by the appointment provider. Sign off status: Pending * Provider: Rita Pino DPM Date: 0 07/26/2023 Generated for Yingi una/Sarai/eTransmitting on: 0 12/10/2024 08:52 AM EDT
--- OUTSIDE RECORDS SUMMARY | 2024-11-10 04:00 | XMS_ITS ---
Author Organization [facility] Address [address] [place] [address] Care Team Providers Care Test Borer Helper Name Role Phone Nadeem Lara Primary Care Provider Nidhi Saul Unavailable [phone] Allergies Allergen (clinical drug ingredient) Drug/Non Drug Allergy documented on EMR Reaction Allergy Type Onset Date Status peanut (uncoded) itchy,closing throat Allergy Active Dog dander Dog Dander asthma Allergy Active Medications Medication SIG (Take, Route, Frequency, Duration) Notes Start Date End Date Status metFORMIN HCl Active Januvia Active Lisinopril Active Encounters Encounter Location Date Provider Diagnosis [address] [address] 11/10/2024 Nidhi Pino Plan Of Treatment Next Appt Details Provider Name:Nidhi Pino , 12/11/2024 02:15:00 PM, [address] [place] [address], [phone], Progress Notes * Isaac MATIAS ADOB:1964 (59 yo M)Acc No.[id number]:11/10/2024 Progress Note Patient: Alexander MEREDITH Isaac Ruvalcaba Provider: Rita Pino DPM :1965 A ge:59 Y S ex:Male Date:11/10/2024 Address:[address] [place] [address] Pcp:Nadeem Lara Subjective: * Chief Complaints: * * Medical History: A sthma, Cancer, Covid-19, Diabetic, Chicken pox. * Medications: T aking Lisinopril , Taking Januvia , Taking metFORMIN HCl * Allergies: p eanut: itchy,closing throat, Dog Dander: asthma - Allergy. Objective: * Vitals: Assessment: Plan: * Treatment: * Images: * The named appointment provid er may or may not be the originator of this progress note, and it is not deemed complete until electronically signed by the appointment provider. Sign off status: Pending * Provider: Rita Pino DPM Date: 11/10/2024 Generated for Masood heart/Sarai/Irinaitting on: 12/10/2024 08:53 AM EDT
--- OUTSIDE RECORDS SUMMARY | 2024-12-10 08:55 | XMS_ITS | Patient Health Record ---
Author Organization [facility] [place] Address [address] [place] [address] Care Team Providers Care Vocational Training Instructor Name Role Phone Nadeem Lara Primary Care Provider Nidhi Saul Unavailable [phone] Allergies Allergen (clinical drug ingredient) Drug/Non Drug Allergy documented on EMR Reaction Allergy Type Onset Date Status peanut (uncoded) itchy,closing throat Allergy Active Dog dander Dog Dander asthma Allergy Active Reason For Referral Diagnosis 1 Type 2 diabetes edgar itus without complication, without long-term current use of insulin (E11.9) Diagnosis 2 Hammer toe of right foot (M20.41) Diagnosis 3 Hammer toe of left f oot (M20.42) Referring Provider First Name Yair Referring Provider Last Name Binh [facility] Referred Provider Nidhi Pino Referred Address [address] [place], [place],[address], Referred Provider Specialty Podiatry Referral Priority Routine [...] Problem Status W/U Status Risk Notes Problem Acquired hammer toe of right foot ([id number] ) Hammer toe of right foot (M20.41) Active confirmed Problem Acquired hammer toe of left foot ([id number] ) Hammer toe of left foot (M20.42) Active confirmed Problem Type II diabetes mellitus without complication (331488005) Type 2 diabetes mellitus without complication, without long-term current use of insulin (E11.9) Active confirmed Encounters Encounter Location Date Provider Diagnosis [facility] [address] [place] [address] 11/06/2024 Nidhi Alvarez Plan Of Treatment Next Appt Details Provider Name:Nidhi Jordon Pino , 12/11/2024 02:15:00 PM, [address] [place] [address], [phone], Insurance Providers Payer Name Payer Address Payer Phone Subscriber Number Group Number Insured Name Patient Relationship to Insured Coverage Start Date Coverage End Date [place] [employer] [address] [place] [id number] August Spouse - patient is the spouse of the insured Medical (General) History Medical History History ICD Code asthma Cancer covid-19 Diabetic Chicken pox Surgical History Surgery Date(Month/Year) knee surgery
[2024-12-10 12:16] LABS: Free T4 (Free Thyroxine) 1.14 ng/dL (0.71-1.85)
== END 2024-12-10 08:08 | disposition home or self-care (01) ==
LOC: HO.HMGCLDS 08:07
PROVIDERS: PCP Nurse Practitioner Family; Visit Provider Nurse Practitioner Family
DX: Z13.29 Encounter for screening for other suspected endocrine disorder (principal); R79.89 Other specified abnormal findings of blood chemistry
CPT/HCPCS: 36415; 84439; 84443